=== PATIENT | male | born 1940 | race Caucasian/White ===

== ENCOUNTER 2017-04-21 14:19 | Inpatient (IN) | payer BC, OTHER ==
[~2017-04-21] VITALS: Ht 182.9 cm; Wt 92.5 kg
[2017-04-21 14:38] VITALS: BP 109/68; PULSE 118; TEMP 37.4; O2SAT 99; BMI 27.7
[2017-04-21 14:54] VITALS: BP 109/68; PULSE 118; O2SAT 100
--- NOTE | 2017-04-21 15:02 | Gastrointestinal Consultation ---
Gastrointestinal Consultation Date of Consultation: Apr 21, 2017 Attending Physician: Dr. Hanna Consulting Physician: Dr. Garcia/GABINO Cooper Reason for Consultation: Ulcerative colitis flare History of Present Illness Patient is a 76 year old male just seen by me in the office today for a new patient evaluation. He is a pleasant 76 year-old male with a 18 year history of UC which has been well controlled with Asacol and Azathioprine therapy for many years. Since February, however, he has been having symptoms of severe UC and was diagnosed at that time with a co-infection of C Difficile colitis. Patient had been following [facility] for management of his UC. He was seen and treated by their office with a 10 day course of Vancomycin. Patient states that despite the antibiotic treatment, he had remained quite symptomatic and has been having ongoing and severe diarrhea since that time. Patient describes symptoms of bilateral lower quadrant abdominal pain and cramping, loose to watery and bloody stools greater than 20 times per day. Bleeding has subsided some over the past week. He states he is feeling quite fatigued, has dry mouth and is dizzy upon standing. Patient has been prescribed a Prednisone taper by [facility]. He has just completed a week of 30 mg daily. The corticosteroids and Imodium he reports taking have not reduced his symptoms. He had started pre-testing for consideration of Remicade therapy. An outpatient stool for C Diff in March was negative. No recent stool culture was performed. Last CBC was also in early March. He was not anemic at that time with a hemoglobin of 14.2. No results of laboratory testing are available at the time of this dictation. Most worrisome, the patient has reportedly sustained an almost 60 pound weight loss since February. A colonoscopy was performed at [facility] on 04/04/17. Results of testing included severe active UC from the rectum to hepatic flexure with ascending colon and cecal sparing. Discussed with Dr. Powers for consideration of admission to the hospital as he is failing outpatient management. Concern for possible co-infection with C Diff vs steroid refractory UC. When seen in the office, he denied any fever or chills, abdominal pain at that time, nausea or vomiting or bloating. He did have multiple bowel movements while in the office and was noted to also have fecal incontinence. Past Medical/Surgical History Past Medical History: 1. Anemia 2. Diabetes 3. GERD 4. Hemorrhoids 5. Hiatus hernia 6. Tubular adenoma of the colon 7. Carpal tunnel syndrome 8. C Diff colitis 9. Hypercholesterolemia 10. Prostate cancer 11. Peripheral neuropathy 12. Spinal stenosis 13. Ulcerative colitis Past Surgical History: 1. Back surgery 2. Bladder surgery 3. Prostatectomy 4. Shoulder surgery 5. Tonsillectomy and adenoidectomy 6. Complete colonoscopy Family History Sororal history of Crohn's disease. Negative for GI malignancy. Social History Smoking Status: Never Smoker Alcohol Use: none Drug Use: none Marital Status: Housing Status: lives with family Occupation Status: retired Physical Exam General Appearance: no apparent distress, + pertinent finding (Chronic ill- appearing) Eyes: PERRL ENT: hearing grossly normal Neck: supple, no adenopathy Respiratory/Chest: lungs clear Cardiovascular: regular rate, rhythm Abdomen: normal bowel sounds, soft, no pulsatile mass, + tenderness (LUQ/LLQ) Extremities: non-tender, no pedal edema Neurologic/Psych: alert, normal mood/affect, oriented x 3 Skin: no jaundice Impression Patient is a 76 year old male with a long-standing history of Ulcerative Colitis with severely active disease noted on recent colonoscopy by [facility] in the setting of recent diagnosis of of C Diff in February of this year with persistent symptoms refractory of oral corticosteroid use. Plan Agree with GABINO Cooper as above: Abd: Soft, Tender LUQ and LLQ, ND, +BS ROS: Negative x12 system review other than pertinent positives in the HPI Plan: 1) Check Stool for C-diff 2) Check CBC, CMP and CRP in the AM 3) Start Solu-Medrol 40mg IV BID 4) Start pre-Remicade testing as patient will most likely need Biologic therapy for treatment of UC 5) No plans for repeat colonoscopy, as he has just had this performed at [facility] in Late March 6) Will follow Clinical course and make further recommendations as needed.
--- NOTE | 2017-04-21 15:46 | Medical Student: [facility] ---
Med Student History & Physical Date & Time of Service: Apr 21, 2017 at 15:39 Chief Complaint: Ulcerative Colitis Flare Up Primary Care Physician: Kaveh Mccormack D.O. History of Present Illness Source: patient, spouse Mr. Billings had a long history of ulcerative colitis. He was diagnosed when he was in high school. He says his last flair was 5 years ago, and before that for some time he would get a flair every 2-3 years. During this most recent flair, which began approx. in February he as lost 60 pounds (60 pounds in about 2 months). During that time, he was found to have C diff and treated with vancomycin. After that, he was put on 40 mg oral steroids daily for an unknown period of time as an outpatient until the past week where that does was tapered to 30 mg daily. He states that he has not had a normal bowel movement since February, and that he has mostly had watery diarrhea with blood clots or streaks of pink blood. He complains of stomach pain, although doesn't feel like he is in pain during my visit. His pain is mostly associated with a crampy feeling that sometimes goes away after defecation and sometimes will return shortly thereafter. He has complained of recent chills, cough, dizziness, and several episodes of vomiting. He says that he feels that his disease has gotten worse recently. Past Medical/Surgical History Diabetes melitis Prostate cancer (post surgery in 1970s, radiation treatment in , monitored with PSA) Family History His sister has Crohn's disease Social History Does not smoke; does not drink Smoking Status: Never Smoker Smokeless Tobacco Use: No Alcohol Use: none Drug Use: none Marital Status: Occupational Status: retired Allergies Coded Allergies: Cephalosporins (Verified Allergy, Mild, RASH, 04/21/17) Medications Ascorbic Acid (Vitamin C), DAILY Atorvastatin (Lipitor), 1 TAB PO DAILY Azathioprine (Imuran), 50 MG PO DAILY Cholecalciferol (Vitamin D-3), DAILY Cyanocobalamin (Vitamin B-12), 1,000 MCG PO DAILY Ferrous Sulfate (Iron), DAILY Glucosamine Sulfate (Glucosamine), 1,000 MG PO DAILY Mesalamine (Asacol Hd), 2 TID Pantoprazole (Protonix), 40 MG PO DAILY Sitagliptin (Januvia), 50 MG PO DAILY Review of Systems Constitutional: + chills, + weight loss, No sweats, No weakness Respiratory: + cough, No wheezing, No shortness of breath, No dyspnea on exertion, No dyspnea at rest Cardiovascular: No chest pain Abdomen: + pain, + vomiting, + diarrhea, No nausea, No constipation Musculoskeletal: No joint pain, No muscle pain Genitourinary - Male: No urinary frequency, No urinary urgency, No urinary hesitancy Physical Exam Vital Signs (24 Hours) Date Time Temp Pulse Resp B/P (MAP) Pulse Ox O2 Delivery O2 Flow Rate FiO2 04/21/17 14:54 118 22 109/68 (82) 100 Room Air General Appearance: WD/WN, + mild distress Head: normocephalic, atraumatic Eyes: normal inspection ENT: hearing grossly normal, + pertinent finding (Dry mucus membranes) Respiratory/Chest: chest non-tender, lungs clear, normal breath sounds, no respiratory distress, no accessory muscle use Cardiovascular: regular rate, rhythm, no edema, no gallop, no JVD, no murmur Abdomen/GI: normal bowel sounds, + tenderness, + distended Impression Assessment and Plan A/P: Ulcerative colitis flair -Obtain CBC, CMP, H/H, stool C diff toxin, ESR and CRP, stool culture -Obtain Gastroenterology Consult -Previously managed on Mesalamine delayed release tablets Dehydration -IV fluids (0.9% NaCl) Diabetes - Obtain HbA1c -insulin while in hospital Hyperlipidemia -on atorvastatin Reviewed: Pt Seen/Exam by Me History See my note for details.
--- NOTE | 2017-04-21 16:03 | History and Physical ---
History & Physical Date & Time of Service: Apr 21, 2017 at 15:49 Chief Complaint: Ulcerative Colitis Flare Up Primary Care Physician: Kaveh Mccormack D.O. History of Present Illness Source: patient 76-year-old male with past medical history of ulcerative colitis presented as a direct admit with complaints of persistent bloody diarrhea which started in February 2017. He was found to be positive for C. difficile and treated with oral vancomycin for about 10 days, he was started on oral steroids due to persistent symptoms. He stated that he recently completed 30 mg dosing of prednisone taper but continues to have diarrhea in spite of the steroids and [id number] antidiarrheals. Denies any nausea or vomiting but has intermittent crampy abdominal pain with bowel movements. Denies any fevers but has had chills. He also stated that he had lost about 60 pounds within the last 2 months. Complains of fatigue, weakness, dry mouth and dizziness. Initially diagnosed with ulcerative colitis about 18 years ago and was managed on mesalamine and azathioprine. Recent colonoscopy revealed severe ulcerative colitis. Denies any history of smoking or alcohol abuse and has a family history of Crohn's disease in his sister. Has a history of prostate cancer and had prostatectomy in the 1970s followed by radiation, last PSA done in March 2017 was 1.9 Past Medical/Surgical History PMH: Diabetes GERD Ulcerative colitis C.diff colitis Spinal stenosis Prostate cancer PSH: H/o carpal tunnel syndrome H/o peripheral neuropathy Social History Smoking Status: Never Smoker Drug Use: none Marital Status: Occupational Status: retired Allergies Coded Allergies: Cephalosporins (Verified Allergy, Mild, RASH, 04/21/17) Home Medications Scheduled Ascorbic Acid (Vitamin C), DAILY Atorvastatin (Lipitor), 1 TAB PO DAILY Azathioprine (Imuran), 50 MG PO DAILY Cholecalciferol (Vitamin D-3), DAILY Cyanocobalamin (Vitamin B-12), 1,000 MCG PO DAILY Ferrous Sulfate (Iron), DAILY Glucosamine Sulfate (Glucosamine), 1,000 MG PO DAILY Mesalamine (Asacol Hd), 2 TID Pantoprazole (Protonix), 40 MG PO DAILY Sitagliptin (Januvia), 50 MG PO DAILY Review of Systems Constitutional: + chills, + weight loss (60 lb weight loss), No fever Eyes: No worsening of vision ENT: No hearing loss Respiratory: No cough, No sputum Cardiovascular: + problem reported (dizziness), No chest pain Abdomen: + pain (intermittent crampy abdominal pain), + diarrhea, + GI bleeding , No nausea, No vomiting Musculoskeletal: No joint pain Genitourinary - Male: No hematuria, No dysuria, No urinary frequency Neurologic: No memory loss Psychiatric: No depression symptoms Endocrine: + fatigue, + excessive thirst Hematologic / Lymphatic: No abnormal bleeding/bruising Integumentary: No rash Physical Exam Vital Signs Date Time Temp Pulse Resp B/P (MAP) Pulse Ox O2 Delivery O2 Flow Rate FiO2 04/21/17 14:54 118 22 109/68 (82) 100 Room Air General Appearance: WD/WN Head: atraumatic Eyes: normal inspection ENT: hearing grossly normal Neck: supple Respiratory/Chest: chest non-tender, lungs clear, normal breath sounds, no respiratory distress, no accessory muscle use Cardiovascular: regular rate, rhythm Abdomen/GI: normal bowel sounds, soft, + pertinent finding (tenderness in mid abdominal area) Extremities/Musculoskelatal: no pedal edema Neurologic/Psych: alert, normal mood/affect, oriented x 3 Diagnostics Laboratory Results Results Past 24 Hours Test 04/21/17 15:41 Range/Units Microbiology Results 04/21/17 C.difficile Toxin B Gene (PCR), Ordered Pending 04/21/17 WBC Smear, Ordered Pending 04/21/17 Shiga Toxin Test, Ordered Pending 04/21/17 Stool Culture, Ordered Pending Impression Assessment and Plan 76-year-old male with past medical history of ulcerative colitis presented with persistent bloody diarrhea, 60 pound weight loss within the last 2 months. Persistent bloody diarrhea likely secondary to ulcerative colitis flare: - Recent colonoscopy suggestive of severe ulcerative colitis from anus to hepatic flexure - Refractory to AZA and mesalamine - Stool culture, fecal leukocytes, C. difficile ordered - Plan to initiate Remicade if no coinfection with C. difficile, quantiferon TB neg - IV solu medrol 40 m g daily - GI consult Dehydration: - Intractable diarrhea - Continue IV fluids with NSS @100 mls./hr - Monitor electrolytes New-onset diabetes mellitus: Was recently diagnosed with diabetes and is currently on Januvia - hemoglobin A1c pending Weight loss: - likely sec to UC - h/o prostatae cancer. PSA at 1.9 Hyperlipidemia: - Continue atorvastatin 40 mg GERD: -Continue Protonix 40 mg daily DO NOT RESUSCITATE DVT prophylaxis: SCDS will avoid chemical AC considering persistent bloody diarrhea Disposition: admitted to [facility] VTE Prophylaxis VTE Risk Assessment Done? Y/N: Yes Risk Level: Moderate Given or contraindicated: SCD's Resident Tracking Resident Involvement: Resident Care Provided Care Provided: Adult [facility] Medicine Reviewed: Pt Seen/Exam by Me History Pt is still having loose stools but there is no longer blood mixed with the stool. Abd pain is still present, but less than prior. No chest pain. Pt has started to have SOB with ambulation today. This is new for him. None at rest and it resolves quickly when he goes to rest and he is never SOB at rest. He has a cough, but this is not new. No fevers, chills, body aches, or other flu like sx. No one else at home is sick. States his loss of appetite was in part due to everything seeming "dry" to him. He was eating a lot of broth and soups to help with this. Agree with HPI/ROS as noted by resident General Appearance: WD/WN, no apparent distress Respiratory: lungs clear, normal breath sounds, no respiratory distress Cardiovascular: normal peripheral pulses, regular rate, rhythm Gastrointestinal: non tender, soft Extremities: non-tender, no pedal edema Neurologic/Psychiatric: alert, normal mood/affect, oriented x 3 Skin Characteristics: normal color, warm/dry Assessment/Plan Agree with plan as outlined above UC flare, steroids and likely to start remicade GI following CXR for new THAO Nursing called to inform that pt is cdiff + Start vanco given prior hx of cdiff
[2017-04-21 16:16] LABS: HEMATOCRIT 34.5 % (42-52); HEMOGLOBIN 11.7 g/dL (14.0-18.0); MEAN CELL VOLUME 90.8 fL (80-100); MEAN CORPUSCULAR HEMOGLOBIN 30.8 pg (25-34); MEAN CORPUSCULAR HGB CONC 33.9 g/dl (32-36); NUCLEATED RED BLOOD CELL ABS 0.02 K/uL (0-0); PLATELET COUNT 399 K/uL (130-400); RED CELL DISTRIBUTION WIDTH CV 13.3 % (11.5-14.5); WHITE BLOOD COUNT 12.67 K/uL (4.8-10.8)
[2017-04-21 16:39] LABS: ALBUMIN 1.4 gm/dl (3.4-5.0); ALT/SGPT 56 U/L (12-78); BLOOD UREA NITROGEN 28 mg/dl (7-18); CALCIUM 8.7 mg/dl (8.5-10.1); CARBON DIOXIDE 23 mmol/L (21-32); CREATININE 1.82 mg/dl (0.60-1.40); GLUCOSE 95 mg/dl (70-99); POTASSIUM 4.2 mmol/L (3.5-5.1); SODIUM 130 mmol/L (136-145)
[2017-04-21 16:42] LABS: ALKALINE PHOSPHATASE 324 U/L (45-117); AST/SGOT 36 U/L (15-37); TOTAL PROTEIN 6.5 gm/dl (6.4-8.2)
[2017-04-21] MEDS: SODIUM CHLORIDE 0.9% 1000ML 1,000 ML IV SCH (16:56)
[2017-04-21] MEDS ORDERED: ATOR-24 PO (17:06)
[2017-04-21] MEDS ORDERED: CHOL200027 (17:06)
[2017-04-21] MEDS ORDERED: FERR1TAB23 (17:06)
[2017-04-21] MEDS ORDERED: PANT40TA PO (17:06)
[2017-04-21] MEDS ORDERED: MESA1TAB4 (17:06)
[2017-04-21] MEDS ORDERED: AZAT50TA17 PO (17:06)
[2017-04-21] MEDS ORDERED: CYAN10005 PO (17:06)
[2017-04-21] MEDS ORDERED: GLUC10007 PO (17:06)
[2017-04-21] MEDS ORDERED: SITA50TA3 PO (17:06)
[2017-04-21] MEDS ORDERED: ASCO10003 (17:06)
--- NOTE | 2017-04-21 18:44 | DIAGNOSTIC IMAGING REPORT ---
CHEST 2 VIEWS ROUTINE CLINICAL HISTORY: Dyspnea on exertion COMPARISON STUDY: No previous studies for comparison. FINDINGS: The cardiac and mediastinal contours are normal. There is no evidence of focal pulmonary consolidation. There is no evidence of failure. No pleural effusions are visualized.[ There is mild gaseous prominence of the visualized portions of the colon. IMPRESSION: No active disease in the chest. Electronically signed by: Pelon Prince M.D. 04/21/2017 6:42 PM Dictated Date/Time: 04/21/2017 6:41 PM
[2017-04-21] MEDS: RASPBERRY SYRUP 5 ML UDP PO SCH (19:17)
[2017-04-21] MEDS: VANCOMYCIN HCL 125 MG/2.5ML SOLN PO SCH (19:17)
[2017-04-21] MEDS: METHYLPREDNISOLONE IV 40 MG in SYRINGE 0 ML IV SCH (19:34)
[2017-04-21 23:11] VITALS: BP 145/88; PULSE 90; TEMP 36.7; O2SAT 98
[2017-04-22] MEDS: VANCOMYCIN HCL 125 MG/2.5ML SOLN PO SCH ×4 (00:26→19:28)
[2017-04-22] MEDS: RASPBERRY SYRUP 5 ML UDP PO SCH ×4 (00:26→19:28)
[2017-04-22] MEDS: SODIUM CHLORIDE 0.9% 1000ML 1,000 ML IV SCH ×3 (02:13→22:02)
[2017-04-22 06:56] LABS: HEMOGLOBIN A1C 6.8 % (4.5-5.6)
[2017-04-22] MEDS: CYANOCOBALAMIN 500 MCG TAB (VIT B-12) PO SCH (07:31)
[2017-04-22] MEDS: SITAGLIPTIN 25 MG TAB PO SCH (07:31)
[2017-04-22] MEDS: PANTOprazole SOD 40 MG TAB PO SCH (07:32)
[2017-04-22] MEDS: METHYLPREDNISOLONE IV 40 MG in SYRINGE 0 ML IV SCH ×2 (07:32→19:28)
[2017-04-22] MEDS: ATORVASTATIN 40 MG TAB PO SCH ×3 (07:32→19:52)
[2017-04-22 07:44] LABS: HEMATOCRIT 30.5 % (42-52); HEMOGLOBIN 10.1 g/dL (14.0-18.0); MEAN CELL VOLUME 91.9 fL (80-100); MEAN CORPUSCULAR HEMOGLOBIN 30.4 pg (25-34); MEAN CORPUSCULAR HGB CONC 33.1 g/dl (32-36); MEAN PLATELET VOLUME 8.7 fL (7.4-10.4); PLATELET COUNT 359 K/uL (130-400); RED CELL DISTRIBUTION WIDTH CV 13.5 % (11.5-14.5); RED CELL DISTRIBUTION WIDTH SD 45.4 fL (36.4-46.3); WHITE BLOOD COUNT 9.77 K/uL (4.8-10.8)
--- NOTE | 2017-04-22 07:59 | Medical Student: [facility] ---
Med Student Progress Note Date of Service Apr 22, 2017. Subjective Pt evaluation today including: conversation w/ patient, physical exam Pain: Denies pain The patient states that he slept better last night than he had in months. He woke up 3 times to go to the bathroom to pass stool overnight and has passed stool once this morning before I saw him at 8:30am. He says that his stool is more formed and a solid brown as opposed to the watery diarrhea with occasional blood that he was having. He was eating breakfast during my visit and had a appetite. When he stands to use the bathroom, he is no longer dizzy/ lightheaded like he was on admission. He does not feel like his mouth is as dry today, although he admitted needing constant fluids to wash down the food he was eating. During my afternoon visit at 3:30pm, the patient states he has gone to the bathroom 2-3 times since my AM visit. He describes these bowel movements as mostly watery diarrhea. There is no blood in his stool. He says that occasionally today his bowel movements have contained more normal solid brown stool but they have been mixed and also sometimes just watery diarrhea. This is in frequency than in the past, but only sometimes changed and sometimes the same in character as described. This morning he told me he was having more formed stools, but his historical recall at this time is that they have been mixed. Review of Systems Constitutional: No chills Cardiac: No chest pain Abdomen: No pain, No nausea, No vomiting, No diarrhea Endo: + excessive thirst Objective Vital Signs Date Time Temp Pulse Resp B/P (MAP) Pulse Ox O2 Delivery O2 Flow Rate FiO2 04/22/17 00:13 Room Air 04/21/17 23:11 36.7 90 18 145/88 (107) 98 Room Air 04/21/17 19:45 Room Air 04/21/17 14:54 118 22 109/68 (82) 100 Room Air 04/21/17 14:38 118 22 109/68 04/21/17 14:38 37.4 118 22 109/68 99 Room Air Physical Exam General Appearance: WD/WN, no apparent distress Respiratory/Chest: chest non-tender, lungs clear, normal breath sounds, no respiratory distress, no accessory muscle use Cardiovascular: regular rate, rhythm, no edema, no gallop, no JVD, no murmur Abdomen: normal bowel sounds, + distended Laboratory Results Last 24 Hours Test 04/21/17 16:00 04/22/17 07:16 White Blood Count 12.67 K/uL 9.77 K/uL Red Blood Count 3.80 M/uL 3.32 M/uL Hemoglobin 11.7 g/dL 10.1 g/dL Hematocrit 34.5 % 30.5 % Mean Corpuscular Volume 90.8 fL 91.9 fL Mean Corpuscular Hemoglobin 30.8 pg 30.4 pg Mean Corpuscular Hemoglobin Concent 33.9 g/dl 33.1 g/dl Platelet Count 399 K/uL 359 K/uL Mean Platelet Volume 9.0 fL 8.7 fL RDW Standard Deviation 44.0 fL 45.4 fL RDW Coefficient of Variation 13.3 % 13.5 % Nucleated RBC Absolute Count (auto) 0.02 K/uL Neutrophils % (Manual) 86.6 % Lymphocytes % (Manual) 4.2 % Monocytes % (Manual) 7.6 % Metamyelocytes % 0.8 % Myelocytes % 0.8 % Nucleated Red Blood Cells % 0.2 % Neutrophils # (Manual) 10.97 K/uL Total Absolute Neutrophils 10.97 K/uL Lymphocytes # (Manual) 0.53 K/uL Total Absolute Lymphocytes 0.53 K/uL Monocytes # (Manual) 0.96 K/uL Metamyelocytes # 0.10 K/uL Myelocytes # 0.10 K/uL Toxic Granulation 2+ Toxic Vacuolation 1+ Dohle Bodies 1+ Spherocytes 1+ Erythrocyte Sedimentation Rate 82 mm/hr Sodium Level 130 mmol/L Potassium Level 4.2 mmol/L Chloride Level 94 mmol/L Carbon Dioxide Level 23 mmol/L Anion Gap 13.0 mmol/L Blood Urea Nitrogen 28 mg/dl Creatinine 1.82 mg/dl Estimated GFR () 40.9 Estimated GFR (Non- 35.3 BUN/Creatinine Ratio 15.5 Random Glucose 95 mg/dl Estimated Average Glucose 148 mg/dl Hemoglobin A1c 6.8 % Calcium Level 8.7 mg/dl Total Bilirubin 1.3 mg/dl Aspartate Amino Transf (AST/SGOT) 36 U/L Alanine Aminotransferase (ALT/SGPT) 56 U/L Alkaline Phosphatase 324 U/L Total Protein 6.5 gm/dl Albumin 1.4 gm/dl Globulin 5.1 gm/dl Albumin/Globulin Ratio 0.3 Medications Current Inpatient Medications Medications (Trade) Dose Ordered Sig/Tawanda Route Start Time Stop Time Status Last Admin Dose Admin Sodium Chloride 1,000 ml @ 100 mls/hr Q10H IV 04/21/17 16:00 05/21/17 15:59 04/22/17 10:59 100 MLS/HR Methylprednisolone Sodium Succinate 40 mg/Syringe 0.64 ml @ 1.5 mls/min BID IV 04/21/17 20:00 05/21/17 19:59 04/22/17 07:32 1.5 MLS/MIN Cyanocobalamin (Vitamin B-12 Tab) 1,000 mcg DAILY PO 04/22/17 08:00 05/22/17 07:59 04/22/17 07:31 1,000 MCG Pantoprazole Sodium (Protonix Tab) 40 mg DAILY PO 04/22/17 08:00 05/22/17 07:59 04/22/17 07:32 40 MG Sitagliptin Phosphate (Januvia Tab) 50 mg DAILY PO 04/22/17 08:00 05/22/17 07:59 04/22/17 07:31 50 MG Vancomycin HCl (Vancomycin Oral Soln) 125 mg Q6H PO 04/21/17 18:30 05/01/17 18:29 04/22/17 11:46 125 MG Raspberry (Raspberry Syrup 5ml Cup) 5 ml Q6H PO 04/21/17 18:30 05/05/17 18:29 04/22/17 11:46 5 ML Atorvastatin Calcium (Lipitor Tab) 40 mg HS PO 04/22/17 21:00 05/22/17 20:59 Saccharomyces Boulardii (Florastor Cap) 250 mg BID PO 04/22/17 10:00 05/22/17 09:59 04/22/17 10:58 250 MG Assessment and Plan Assessment and Plan: Assessment and Plan A/P: Ulcerative colitis flair -Obtain CBC, CMP, H/H, stool C diff toxin, ESR and CRP, stool culture -Obtain Gastroenterology Consult, -- Consult appreciated --today, GI recommends initiation of Florastor 250 mg BID -Continue 40mg IV methylprednisolone BID -Previously managed on Mesalamine delayed release tablets -Stool testing revealed C diff toxin gene positivity, start Vancomycin 125 mg Q6H PO -Stool culture reveals stool negative for shigella, Campylobacter, and Salmonella - Initial tests preparing for initiation of remicade therapy - outside labs show negative quantiferon gold test for TB - Vitamin B12 and Folate levels tested and normal Anemia Hgb/Hct is: low at 11.7/34.5 on 04/21/17 and lower at 10.1/30.5 on 04/22/17 Dehydration -IV fluids (0.9% NaCl) Diabetes melitis - Obtain HbA1c - 6.8 ----[id number]- -[id number]- -i-n- -[id number]-a-l- Sitagliptin 50mg PO daily Hyperlipidemia -on atorvastatin 40 mg PO daily Reviewed: Pt Seen/Exam by Me History See my note for details. Assessment/Plan Agree with plan as outlined above UC flare, steroids and likely to start remicade GI following CXR for new THAO Nursing called to inform that pt is cdiff + Start vanco given prior hx of cdiff
[2017-04-22 08:00] VITALS: O2SAT 99
[2017-04-22] MEDS ORDERED: GLUCOSAMINE SULFATE 1000 MG PO SCH (08:00)
[2017-04-22] MEDS ORDERED: NURSING VERBAL MED ORDER ONE (08:00)
[2017-04-22 08:06] LABS: ALBUMIN 1.3 gm/dl (3.4-5.0); CALCIUM 8.1 mg/dl (8.5-10.1); CREATININE 0.93 mg/dl (0.60-1.40); POTASSIUM 3.9 mmol/L (3.5-5.1)
[2017-04-22 08:07] VITALS: BP 106/68; PULSE 86; TEMP 36.6; O2SAT 98
[2017-04-22 08:10] LABS: TOTAL PROTEIN 5.9 gm/dl (6.4-8.2)
[2017-04-22 08:14] LABS: BASO % 0.1 %; BASO ABS # 0.01 K/uL (0-0.2); IG# 0.14 K/uL (0.00-0.02); LYMPH % 3.3 %; LYMPH ABS # 0.32 K/uL (1.2-3.4); MONO % 6.8 %; MONO ABS # 0.66 K/uL (0.11-0.59); NEUT % 88.4 %; NEUT ABS # 8.64 K/uL (1.4-6.5)
--- NOTE | 2017-04-22 09:06 | Gastroenterology Progress Note ---
Progress Note Date of Service: Apr 22, 2017 Subjective Pt evaluation today including: conversation w/ patient, conversation w/ family , physical exam, chart review, lab review, review of inpatient medication list Patient reports significant improvement over night. He was only awaken from sleep times to have bowel movements. States his stool started to have some form this morning. No blood in the bms. No abdominal pain. Tolerating a low fiber diet well without any nausea or vomiting. Stool for C Difficile toxin B positive. Has been started on oral Vancomycin as well as IV Solu-Medrol. Patient is without any other GI complaints. Review of Systems Constitutional: No fever, No chills Respiratory: No problem reported Cardiac: No problem reported Abdomen: + see HPI Psych: No problem reported Medications Current Inpatient Medications Medications (Trade) Dose Ordered Sig/Tawanda Route Start Time Stop Time Status Last Admin Dose Admin Sodium Chloride 1,000 ml @ 100 mls/hr Q10H IV 04/21/17 16:00 05/21/17 15:59 04/22/17 02:13 100 MLS/HR Methylprednisolone Sodium Succinate 40 mg/Syringe 0.64 ml @ 1.5 mls/min BID IV 04/21/17 20:00 05/21/17 19:59 04/22/17 07:32 1.5 MLS/MIN Cyanocobalamin (Vitamin B-12 Tab) 1,000 mcg DAILY PO 04/22/17 08:00 05/22/17 07:59 04/22/17 07:31 1,000 MCG Pantoprazole Sodium (Protonix Tab) 40 mg DAILY PO 04/22/17 08:00 05/22/17 07:59 04/22/17 07:32 40 MG Sitagliptin Phosphate (Januvia Tab) 50 mg DAILY PO 04/22/17 08:00 05/22/17 07:59 04/22/17 07:31 50 MG Vancomycin HCl (Vancomycin Oral Soln) 125 mg Q6H PO 04/21/17 18:30 05/01/17 18:29 04/22/17 06:10 125 MG Raspberry (Raspberry Syrup 5ml Cup) 5 ml Q6H PO 04/21/17 18:30 05/05/17 18:29 04/22/17 06:10 5 ML Atorvastatin Calcium (Lipitor Tab) 40 mg HS PO 04/22/17 21:00 05/22/17 20:59 Objective Vital Signs Date Time Temp Pulse Resp B/P (MAP) Pulse Ox O2 Delivery O2 Flow Rate FiO2 04/22/17 08:07 36.6 86 17 106/68 (81) 98 Room Air 04/22/17 00:13 Room Air 04/21/17 23:11 36.7 90 18 145/88 (107) 98 Room Air 04/21/17 19:45 Room Air 04/21/17 14:54 118 22 109/68 (82) 100 Room Air 04/21/17 14:38 118 22 109/68 04/21/17 14:38 37.4 118 22 109/68 99 Room Air Physical Exam General Appearance: WD/WN, no apparent distress Eyes: EOMI ENT: hearing grossly normal Respiratory/Chest: lungs clear, no respiratory distress Cardiovascular: regular rate, rhythm Abdomen: normal bowel sounds, non tender, soft Neurologic/Psych: alert, normal mood/affect, oriented x 3 Skin: warm/dry Laboratory Results Last 24 Hours Test 04/21/17 16:00 04/22/17 07:16 White Blood Count 12.67 K/uL 9.77 K/uL Red Blood Count 3.80 M/uL 3.32 M/uL Hemoglobin 11.7 g/dL 10.1 g/dL Hematocrit 34.5 % 30.5 % Mean Corpuscular Volume 90.8 fL 91.9 fL Mean Corpuscular Hemoglobin 30.8 pg 30.4 pg Mean Corpuscular Hemoglobin Concent 33.9 g/dl 33.1 g/dl Platelet Count 399 K/uL 359 K/uL Mean Platelet Volume 9.0 fL 8.7 fL RDW Standard Deviation 44.0 fL 45.4 fL RDW Coefficient of Variation 13.3 % 13.5 % Nucleated RBC Absolute Count (auto) 0.02 K/uL Neutrophils % (Manual) 86.6 % Lymphocytes % (Manual) 4.2 % Monocytes % (Manual) 7.6 % Metamyelocytes % 0.8 % Myelocytes % 0.8 % Nucleated Red Blood Cells % 0.2 % Neutrophils # (Manual) 10.97 K/uL Total Absolute Neutrophils 10.97 K/uL Lymphocytes # (Manual) 0.53 K/uL Total Absolute Lymphocytes 0.53 K/uL Monocytes # (Manual) 0.96 K/uL Metamyelocytes # 0.10 K/uL Myelocytes # 0.10 K/uL Toxic Granulation 2+ 1+ Toxic Vacuolation 1+ Dohle Bodies 1+ Spherocytes 1+ Erythrocyte Sedimentation Rate 82 mm/hr Sodium Level 130 mmol/L 133 mmol/L Potassium Level 4.2 mmol/L 3.9 mmol/L Chloride Level 94 mmol/L 99 mmol/L Carbon Dioxide Level 23 mmol/L 25 mmol/L Anion Gap 13.0 mmol/L 9.0 mmol/L Blood Urea Nitrogen 28 mg/dl 25 mg/dl Creatinine 1.82 mg/dl 0.93 mg/dl Estimated GFR () 40.9 92.1 Estimated GFR (Non- 35.3 79.5 BUN/Creatinine Ratio 15.5 27.1 Random Glucose 95 mg/dl 128 mg/dl Estimated Average Glucose 148 mg/dl Hemoglobin A1c 6.8 % Calcium Level 8.7 mg/dl 8.1 mg/dl Total Bilirubin 1.3 mg/dl 0.6 mg/dl Aspartate Amino Transf (AST/SGOT) 36 U/L 31 U/L Alanine Aminotransferase (ALT/SGPT) 56 U/L 46 U/L Alkaline Phosphatase 324 U/L 284 U/L Total Protein 6.5 gm/dl 5.9 gm/dl Albumin 1.4 gm/dl 1.3 gm/dl Globulin 5.1 gm/dl 4.6 gm/dl Albumin/Globulin Ratio 0.3 0.3 Neutrophils (%) (Auto) 88.4 % Lymphocytes (%) (Auto) 3.3 % Monocytes (%) (Auto) 6.8 % Eosinophils (%) (Auto) 0.0 % Basophils (%) (Auto) 0.1 % Neutrophils # (Auto) 8.64 K/uL Lymphocytes # (Auto) 0.32 K/uL Monocytes # (Auto) 0.66 K/uL Eosinophils # (Auto) 0.00 K/uL Basophils # (Auto) 0.01 K/uL Immature Granulocyte % (Auto) 1.4 % Immature Granulocyte # (Auto) 0.14 K/uL Echinocytes 1+ Est Creatinine Clear Calc Drug Dose 74.2 ml/min Assessment and Plan Patient is a 76 year old male with a long-standing history of Ulcerative Colitis with severely active disease noted on recent colonoscopy by [facility] in the setting of recent diagnosis of C Diff in February of this year with persistent symptoms refractory of oral corticosteroid use and positive C Difficile toxin B. 1. Continue Vancomycin 125 mg QID. 2. Continue Solu-Medrol 40 mg IV BID. 3. Low fiber diet. 4. Add Florastor 250 mg BID. 5. Supportive care per primary team. Agree with GABINO Cooper as above Abd: Soft, NT, ND, +BS Continue current therapy Will follow clinical course and make further recommendations as needed.
[2017-04-22] MEDS: SACCHAROMYCES BOUL (FLORASTOR) 250 MG CAP PO SCH ×2 (10:58→19:52)
--- NOTE | 2017-04-22 12:45 | Family Medicine Progress Note ---
Progress Note Date of Service Apr 22, 2017. Subjective Pt evaluation today including: conversation w/ patient, physical exam Pain: denies any discomfort this AM PO Intake: tolerating low fiber diet Voiding: no voiding problems This AM pt denies any abdominal pain. Reports resolution of bloody diarrhea - BM this AM was more formed, brown and non-bloody. No n/v. Constitutional: No fever, No chills Respiratory: No shortness of breath Cardiovascular: No chest pain Abdomen: No pain, No nausea, No vomiting, No diarrhea Male : No dysuria Medications Current Inpatient Medications Medications (Trade) Dose Ordered Sig/Tawanda Route Start Time Stop Time Status Last Admin Dose Admin Sodium Chloride 1,000 ml @ 100 mls/hr Q10H IV 04/21/17 16:00 05/21/17 15:59 04/22/17 10:59 100 MLS/HR Methylprednisolone Sodium Succinate 40 mg/Syringe 0.64 ml @ 1.5 mls/min BID IV 04/21/17 20:00 05/21/17 19:59 04/22/17 07:32 1.5 MLS/MIN Cyanocobalamin (Vitamin B-12 Tab) 1,000 mcg DAILY PO 04/22/17 08:00 05/22/17 07:59 04/22/17 07:31 1,000 MCG Pantoprazole Sodium (Protonix Tab) 40 mg DAILY PO 04/22/17 08:00 05/22/17 07:59 04/22/17 07:32 40 MG Sitagliptin Phosphate (Januvia Tab) 50 mg DAILY PO 04/22/17 08:00 05/22/17 07:59 04/22/17 07:31 50 MG Vancomycin HCl (Vancomycin Oral Soln) 125 mg Q6H PO 04/21/17 18:30 05/01/17 18:29 04/22/17 11:46 125 MG Raspberry (Raspberry Syrup 5ml Cup) 5 ml Q6H PO 04/21/17 18:30 05/05/17 18:29 04/22/17 11:46 5 ML Atorvastatin Calcium (Lipitor Tab) 40 mg HS PO 04/22/17 21:00 05/22/17 20:59 Saccharomyces Boulardii (Florastor Cap) 250 mg BID PO 04/22/17 10:00 05/22/17 09:59 04/22/17 10:58 250 MG Objective Vital Signs Date Time Temp Pulse Resp B/P (MAP) Pulse Ox O2 Delivery O2 Flow Rate FiO2 04/22/17 08:07 36.6 86 17 106/68 (81) 98 Room Air 04/22/17 08:00 99 Room Air 04/22/17 00:13 Room Air 04/21/17 23:11 36.7 90 18 145/88 (107) 98 Room Air 04/21/17 19:45 Room Air 04/21/17 14:54 118 22 109/68 (82) 100 Room Air 04/21/17 14:38 118 22 109/68 04/21/17 14:38 37.4 118 22 109/68 99 Room Air Physical Exam General Appearance: no apparent distress Eyes: normal inspection, sclerae normal Respiratory/Chest: lungs clear, normal breath sounds Cardiovascular: regular rate, rhythm, no murmur Abdomen: normal bowel sounds, soft, + tenderness (LUQ and LLQ) Extremities: non-tender, no pedal edema Skin: warm/dry Laboratory Results 04/22/17 07:16 Red Blood Count 3.32, Mean Corpuscular Volume 91.9, Mean Corpuscular Hemoglobin 30.4, Mean Corpuscular Hemoglobin Concent 33.1, Mean Platelet Volume 8.7, Neutrophils (%) (Auto) 88.4, Lymphocytes (%) (Auto) 3.3, Monocytes (%) (Auto) 6.8, Eosinophils (%) (Auto) 0.0, Basophils (%) (Auto) 0.1, Neutrophils # (Auto) 8.64, Lymphocytes # (Auto) 0.32, Monocytes # (Auto) 0.66, Eosinophils # (Auto) 0.00, Basophils # (Auto) 0.01 04/22/17 07:16 Test 04/21/17 16:00 04/22/17 07:16 04/22/17 10:26 Nucleated RBC Absolute Count (auto) 0.02 K/uL (0-0) Neutrophils % (Manual) 86.6 % Lymphocytes % (Manual) 4.2 % Monocytes % (Manual) 7.6 % Metamyelocytes % 0.8 % Myelocytes % 0.8 % Nucleated Red Blood Cells % 0.2 % Neutrophils # (Manual) 10.97 K/uL (1.4-6.5) Total Absolute Neutrophils 10.97 K/uL (1.4-6.5) Lymphocytes # (Manual) 0.53 K/uL (1.2-3.4) Total Absolute Lymphocytes 0.53 K/uL (1.2-3.4) Monocytes # (Manual) 0.96 K/uL (0.11-0.59) Metamyelocytes # 0.10 K/uL (0-0) Myelocytes # 0.10 K/uL (0-0) Toxic Vacuolation 1+ Dohle Bodies 1+ Spherocytes 1+ Erythrocyte Sedimentation Rate 82 mm/hr (0-14) Estimated Average Glucose 148 mg/dl Hemoglobin A1c 6.8 % (4.5-5.6) White Blood Count 9.77 K/uL (4.8-10.8) Red Blood Count 3.32 M/uL (4.7-6.1) Hemoglobin 10.1 g/dL (14.0-18.0) Hematocrit 30.5 % (42-52) Mean Corpuscular Volume 91.9 fL (80-100) Mean Corpuscular Hemoglobin 30.4 pg (25-34) Mean Corpuscular Hemoglobin Concent 33.1 g/dl (32-36) Platelet Count 359 K/uL (130-400) Mean Platelet Volume 8.7 fL (7.4-10.4) Neutrophils (%) (Auto) 88.4 % Lymphocytes (%) (Auto) 3.3 % Monocytes (%) (Auto) 6.8 % Eosinophils (%) (Auto) 0.0 % Basophils (%) (Auto) 0.1 % Neutrophils # (Auto) 8.64 K/uL (1.4-6.5) Lymphocytes # (Auto) 0.32 K/uL (1.2-3.4) Monocytes # (Auto) 0.66 K/uL (0.11-0.59) Eosinophils # (Auto) 0.00 K/uL (0-0.5) Basophils # (Auto) 0.01 K/uL (0-0.2) RDW Standard Deviation 45.4 fL (36.4-46.3) RDW Coefficient of Variation 13.5 % (11.5-14.5) Immature Granulocyte % (Auto) 1.4 % Immature Granulocyte # (Auto) 0.14 K/uL (0.00-0.02) Toxic Granulation 1+ Echinocytes 1+ Anion Gap 9.0 mmol/L (3-11) Est Creatinine Clear Calc Drug Dose 74.2 ml/min Estimated GFR () 92.1 Estimated GFR (Non- 79.5 BUN/Creatinine Ratio 27.1 (10-20) Calcium Level 8.1 mg/dl (8.5-10.1) Total Bilirubin 0.6 mg/dl (0.2-1) Aspartate Amino Transf (AST/SGOT) 31 U/L (15-37) Alanine Aminotransferase (ALT/SGPT) 46 U/L (12-78) Alkaline Phosphatase 284 U/L (45-117) Total Protein 5.9 gm/dl (6.4-8.2) Albumin 1.3 gm/dl (3.4-5.0) Globulin 4.6 gm/dl (2.5-4.0) Albumin/Globulin Ratio 0.3 (0.9-2) Iron Level 28 mcg/dl (35-175) Total Iron Binding Capacity 102 mcg/dl (250-450) Transferrin 87 mg/dl (200-360) Transferrin % Saturation 23 % (20-50) Ferritin 1946.0 ng/ml (8.0-388.0) Vitamin B12 Level > 2000 pg/mL (211-911) Folate 14.56 ng/mL (>5.38) Date/Time Source Procedure Growth Status 04/21/17 16:50 Stool C.difficile Toxin B Gene (PCR) - Final Positive for C. difficile toxin B gene Complete Assessment and Plan 76yoM with PMHx of new onset-DM, HLD, GERD, and ulcerative colitis presented with persistent bloody diarrhea, and 60 pound weight loss within the last 2 months. Persistent bloody diarrhea likely secondary to ulcerative colitis flare - Colonoscopy in March 2017 suggestive of severe ulcerative colitis from anus to hepatic flexure - Refractory to AZA and mesalamine - Stool culture NGTD, fecal leukocytes many - C. difficile positive, previous infection in Feb 2017 - B12 >2000; folate 14.56 nl - Iron study - Iron low 28, TIBC 102 low, Transferrin low 87, transferrin sat 23 %, and ferritin high 1946 (consistent with likely acute phase response) - GI consult - Plan to initiate Remicade if no coinfection with C. difficile, quantiferon TB = neg - IV solu medrol 40 m g daily - Vancomycin 125mg QID - Florastor 250mg BID Dehydration: improving - Intractable diarrhea - Continue IV fluids with NSS @100 mls./hr - Monitor electrolytes New-onset diabetes mellitus Was recently diagnosed with diabetes and is currently on Januvia - hemoglobin A1c 6.8 Weight loss - likely sec to UC - h/o prostatae cancer. PSA at 1.9 Hyperlipidemia - Continue atorvastatin 40 mg GERD - Continue Protonix 40 mg daily DO NOT RESUSCITATE DVT prophylaxis: SCDS - will avoid chemical AC given bloody diarrhea Disposition: pending clinical improvement Resident Involvement: Resident Care Provided Care Provided: [facility] Medicine Reviewed: Pt Seen/Exam by Me History Pt is feeling much improved. His stools are more formed and less frequent. No visible blood noted. Pt is tolerating PO without issue. Abd pain is resolved. His SOB with ambulation has resolved. No chest pain. Agree with HPI/ROS as noted by resident General Appearance: WD/WN, no apparent distress Respiratory: normal breath sounds, no respiratory distress Cardiovascular: normal peripheral pulses, regular rate, rhythm Gastrointestinal: non tender, soft Extremities: non-tender, no pedal edema Neurologic/Psychiatric: alert, normal mood/affect, oriented x 3 Skin Characteristics: normal color, warm/dry Assessment/Plan Agree with plan as outlined above UC flare, steroids and likely to start remicade GI following CXR neg and THAO has resolved Pt is cdiff + Vanco given prior hx of cdiff, started 04/21 HS Iron panel, B12, folate given recent nutrition issues
[2017-04-22 16:00] VITALS: O2SAT 98
[2017-04-22 16:35] VITALS: BP 134/83; PULSE 99; TEMP 36.7; O2SAT 97
[2017-04-23] MEDS: RASPBERRY SYRUP 5 ML UDP PO SCH ×4 (00:08→18:18)
[2017-04-23] MEDS: VANCOMYCIN HCL 125 MG/2.5ML SOLN PO SCH ×4 (00:08→18:18)
[2017-04-23 01:10] VITALS: BP_SYST 126; BP_SYST 130; BP_DIAS 78; BP_DIAS 79; BP_DIAS 80; PULSE 108; PULSE 79; PULSE 96; TEMP 36.4; O2SAT 97
[2017-04-23] MEDS: SODIUM CHLORIDE 0.9% 1000ML 1,000 ML IV SCH (07:32)
[2017-04-23 07:33] VITALS: BP 122/73; PULSE 80; TEMP 36.5; O2SAT 97
[2017-04-23] MEDS: SACCHAROMYCES BOUL (FLORASTOR) 250 MG CAP PO SCH ×2 (07:33→20:12)
[2017-04-23] MEDS: METHYLPREDNISOLONE IV 40 MG in SYRINGE 0 ML IV SCH (07:33)
[2017-04-23 08:00] VITALS: O2SAT 97
[2017-04-23 08:10] LABS: ALBUMIN 1.2 gm/dl (3.4-5.0); CALCIUM 8.1 mg/dl (8.5-10.1); CREATININE 0.63 mg/dl (0.60-1.40); POTASSIUM 3.8 mmol/L (3.5-5.1); TOTAL PROTEIN 5.3 gm/dl (6.4-8.2)
[2017-04-23] MEDS: PANTOprazole SOD 40 MG TAB PO SCH (08:20)
[2017-04-23] MEDS: CYANOCOBALAMIN 500 MCG TAB (VIT B-12) PO SCH (08:20)
[2017-04-23] MEDS: SITAGLIPTIN 25 MG TAB PO SCH (08:20)
[2017-04-23 08:41] LABS: HEMATOCRIT 28.3 % (42-52); HEMOGLOBIN 9.4 g/dL (14.0-18.0); MEAN CELL VOLUME 92.5 fL (80-100); MEAN CORPUSCULAR HEMOGLOBIN 30.7 pg (25-34); MEAN CORPUSCULAR HGB CONC 33.2 g/dl (32-36); MEAN PLATELET VOLUME 8.9 fL (7.4-10.4); PLATELET COUNT 359 K/uL (130-400); RED CELL DISTRIBUTION WIDTH CV 13.5 % (11.5-14.5); RED CELL DISTRIBUTION WIDTH SD 45.6 fL (36.4-46.3); WHITE BLOOD COUNT 6.27 K/uL (4.8-10.8)
[2017-04-23 09:06] LABS: BASO % 0.2 %; BASO ABS # 0.01 K/uL (0-0.2); LYMPH % 6.7 %; LYMPH ABS # 0.42 K/uL (1.2-3.4); MONO % 8.1 %; MONO ABS # 0.51 K/uL (0.11-0.59); NEUT % 83.4 %; NEUT ABS # 5.23 K/uL (1.4-6.5)
--- NOTE | 2017-04-23 09:07 | Clinical Documentation Query ---
CLINICAL DOCUMENTATION QUERY In your clinical opinion is this patient being managed for: (x ) Mild protein-calorie malnutrition ( ) Not Agree ( ) Other explanation of clinical findings (Please Explain) ( ) Unable to determine (Please Define) ( ) Need to Discuss The medical record reflects the following clinical findings, treatment, and risk factors. Clinical Indicators: 60 # weight loss in 2 months Treatment: Diet, treatment of colitis flare, C-diff Risk Factors: Ulcerative colitis, C-diff, new-onset DM Please clarify and document your clinical opinion in the progress notes and discharge summary. Terms such as "probable", "suspected", "likely", "questionable", "possible", or "still to be ruled out" are acceptable. IF IN AGREEMENT, YOU MUST DOCUMENT ABOVE DIAGNOSTIC STATEMENT IN DAILY PROGRESS NOTES AND DISCHARGE SUMMARY. This document is not part of the patient's record. Thank You, Gabrielle Holm RN [phone]
--- NOTE | 2017-04-23 09:08 | Clinical Documentation Query ---
CLINICAL DOCUMENTATION QUERY In your clinical opinion is this patient being managed for: ( x ) Severe protein-calorie malnutrition ( ) Not Agree ( ) Other explanation of clinical findings (Please Explain) ( ) Unable to determine (Please Define) ( ) Need to Discuss The medical record reflects the following clinical findings, treatment, and risk factors. Clinical Indicators: 60 # weight loss in 2 months Treatment: Diet, treatment of colitis flare, C-diff Risk Factors: Ulcerative colitis, C-diff, new-onset DM Please clarify and document your clinical opinion in the progress notes and discharge summary. Terms such as "probable", "suspected", "likely", "questionable", "possible", or "still to be ruled out" are acceptable. IF IN AGREEMENT, YOU MUST DOCUMENT ABOVE DIAGNOSTIC STATEMENT IN DAILY PROGRESS NOTES AND DISCHARGE SUMMARY. This document is not part of the patient's record. Thank You, Gabrielle Holm RN [phone]
--- NOTE | 2017-04-23 09:36 | Gastroenterology Progress Note ---
Progress Note Date of Service: Apr 23, 2017 Subjective Pt evaluation today including: conversation w/ patient, physical exam, chart review, review of inpatient medication list Patient reports improved fatigue but with some generalized weakness. Patient's verbalizes concern that patient has not been ambulating will become more weak. Three bowel movements overnight. No blood or mucous. Still some fecal urgency to defecate with watery stool consistency. Tolerating diet. Continues Vanco and IV Solu-Medrol. Review of Systems Constitutional: + weakness Respiratory: No problem reported Cardiac: No problem reported Abdomen: + see HPI Medications Current Inpatient Medications Medications (Trade) Dose Ordered Sig/Tawanda Route Start Time Stop Time Status Last Admin Dose Admin Sodium Chloride 1,000 ml @ 100 mls/hr Q10H IV 04/21/17 16:00 05/21/17 15:59 04/23/17 07:32 100 MLS/HR Methylprednisolone Sodium Succinate 40 mg/Syringe 0.64 ml @ 1.5 mls/min BID IV 04/21/17 20:00 05/21/17 19:59 04/23/17 07:33 1.5 MLS/MIN Cyanocobalamin (Vitamin B-12 Tab) 1,000 mcg DAILY PO 04/22/17 08:00 05/22/17 07:59 04/23/17 08:20 1,000 MCG Pantoprazole Sodium (Protonix Tab) 40 mg DAILY PO 04/22/17 08:00 05/22/17 07:59 04/23/17 08:20 40 MG Sitagliptin Phosphate (Januvia Tab) 50 mg DAILY PO 04/22/17 08:00 05/22/17 07:59 04/23/17 08:20 50 MG Vancomycin HCl (Vancomycin Oral Soln) 125 mg Q6H PO 04/21/17 18:30 05/01/17 18:29 04/23/17 06:13 125 MG Raspberry (Raspberry Syrup 5ml Cup) 5 ml Q6H PO 04/21/17 18:30 05/05/17 18:29 04/23/17 06:13 5 ML Atorvastatin Calcium (Lipitor Tab) 40 mg HS PO 04/22/17 21:00 05/22/17 20:59 04/22/17 19:52 40 MG Saccharomyces Boulardii (Florastor Cap) 250 mg BID PO 04/22/17 10:00 05/22/17 09:59 04/23/17 07:33 250 MG Objective Vital Signs Date Time Temp Pulse Resp B/P (MAP) Pulse Ox O2 Delivery O2 Flow Rate FiO2 04/23/17 08:00 97 Room Air 04/23/17 07:33 36.5 80 17 122/73 (89) 97 Room Air 04/23/17 01:10 36.4 108 20 126/78 (94) 97 Room Air 79 130/80 (97) 96 126/79 (95) 04/23/17 00:25 Room Air 04/22/17 16:35 36.7 99 17 134/83 (100) 97 Room Air 04/22/17 16:00 98 Room Air Physical Exam General Appearance: no apparent distress Eyes: EOMI Respiratory/Chest: lungs clear, normal breath sounds, no respiratory distress Cardiovascular: regular rate, rhythm Abdomen: non tender, soft, + abnormal bowel sounds (hyperactive) Neurologic/Psych: alert, normal mood/affect, oriented x 3 Skin: warm/dry Laboratory Results Last 24 Hours Test 04/22/17 10:26 04/23/17 07:23 Iron Level 28 mcg/dl Total Iron Binding Capacity 102 mcg/dl Transferrin 87 mg/dl Transferrin % Saturation 23 % Ferritin 1946.0 ng/ml Vitamin B12 Level > 2000 pg/mL Folate 14.56 ng/mL White Blood Count 6.27 K/uL Red Blood Count 3.06 M/uL Hemoglobin 9.4 g/dL Hematocrit 28.3 % Mean Corpuscular Volume 92.5 fL Mean Corpuscular Hemoglobin 30.7 pg Mean Corpuscular Hemoglobin Concent 33.2 g/dl Platelet Count 359 K/uL Mean Platelet Volume 8.9 fL Neutrophils (%) (Auto) 83.4 % Lymphocytes (%) (Auto) 6.7 % Monocytes (%) (Auto) 8.1 % Eosinophils (%) (Auto) 0.0 % Basophils (%) (Auto) 0.2 % Neutrophils # (Auto) 5.23 K/uL Lymphocytes # (Auto) 0.42 K/uL Monocytes # (Auto) 0.51 K/uL Eosinophils # (Auto) 0.00 K/uL Basophils # (Auto) 0.01 K/uL RDW Standard Deviation 45.6 fL RDW Coefficient of Variation 13.5 % Immature Granulocyte % (Auto) 1.6 % Immature Granulocyte # (Auto) 0.10 K/uL Toxic Granulation 2+ Sodium Level 135 mmol/L Potassium Level 3.8 mmol/L Chloride Level 104 mmol/L Carbon Dioxide Level 24 mmol/L Anion Gap 7.0 mmol/L Blood Urea Nitrogen 21 mg/dl Creatinine 0.63 mg/dl Est Creatinine Clear Calc Drug Dose 109.5 ml/min Estimated GFR () 110.9 Estimated GFR (Non- 95.7 BUN/Creatinine Ratio 32.7 Random Glucose 146 mg/dl Calcium Level 8.1 mg/dl Total Bilirubin 0.4 mg/dl Aspartate Amino Transf (AST/SGOT) 39 U/L Alanine Aminotransferase (ALT/SGPT) 47 U/L Alkaline Phosphatase 231 U/L Total Protein 5.3 gm/dl Albumin 1.2 gm/dl Globulin 4.1 gm/dl Albumin/Globulin Ratio 0.3 Assessment and Plan Patient is a 76 year old male with a long-standing history of Ulcerative Colitis with severely active disease noted on recent colonoscopy by [facility] in the setting of recent diagnosis of C Diff in February of this year with persistent symptoms refractory of oral corticosteroid use and positive C Difficile toxin B. 1. Continue Vancomycin 125 mg QID. Would recommend a long taper upon discharge as he was previously treated with Vancomycin. 2. Reduce Solu-Medrol to 20 mg IV BID. 3. Low fiber diet. 4. Continue Florastor 250 mg BID. 5. Supportive care per primary team. Agree with GABINO Cooper as above Still with multiple liquid BM's per day Abd: Soft, NT, Distended, +BS Agree with continuing Vancomycin 125mg by mouth QID with long taper on Discharge Continue Solu-medrol IV at present. Continue supportive care.
--- NOTE | 2017-04-23 14:45 | Medical Student: [facility] ---
Med Student Progress Note Date of Service Apr 23, 2017. Subjective Pt evaluation today including: conversation w/ patient, conversation w/ family , physical exam Pain: No pain PO Intake: Yes Patient did well overnight. He had 3 bowel movements overnight. He has expressed some urgency to move his bowels and he had an accident last night after not being making it to the toilet. He is feeling a lot better on the steroids he says. Review of Systems Constitutional: No fever, No chills Respiratory: No shortness of breath Cardiac: No chest pain, No edema Abdomen: + diarrhea, No pain, No nausea, No vomiting Endo: No excessive thirst Objective Vital Signs Date Time Temp Pulse Resp B/P (MAP) Pulse Ox O2 Delivery O2 Flow Rate FiO2 04/23/17 08:00 97 Room Air 04/23/17 07:33 36.5 80 17 122/73 (89) 97 Room Air 04/23/17 01:10 36.4 108 20 126/78 (94) 97 Room Air 79 130/80 (97) 96 126/79 (95) 04/23/17 00:25 Room Air 04/22/17 16:35 36.7 99 17 134/83 (100) 97 Room Air 04/22/17 16:00 98 Room Air Physical Exam General Appearance: WD/WN, no apparent distress Respiratory/Chest: chest non-tender, lungs clear, normal breath sounds, no respiratory distress, no accessory muscle use Cardiovascular: regular rate, rhythm, no edema, no gallop, no JVD, no murmur Abdomen: non tender, soft, + distended Laboratory Results Last 24 Hours Test 04/23/17 07:23 White Blood Count 6.27 K/uL Red Blood Count 3.06 M/uL Hemoglobin 9.4 g/dL Hematocrit 28.3 % Mean Corpuscular Volume 92.5 fL Mean Corpuscular Hemoglobin 30.7 pg Mean Corpuscular Hemoglobin Concent 33.2 g/dl Platelet Count 359 K/uL Mean Platelet Volume 8.9 fL Neutrophils (%) (Auto) 83.4 % Lymphocytes (%) (Auto) 6.7 % Monocytes (%) (Auto) 8.1 % Eosinophils (%) (Auto) 0.0 % Basophils (%) (Auto) 0.2 % Neutrophils # (Auto) 5.23 K/uL Lymphocytes # (Auto) 0.42 K/uL Monocytes # (Auto) 0.51 K/uL Eosinophils # (Auto) 0.00 K/uL Basophils # (Auto) 0.01 K/uL RDW Standard Deviation 45.6 fL RDW Coefficient of Variation 13.5 % Immature Granulocyte % (Auto) 1.6 % Immature Granulocyte # (Auto) 0.10 K/uL Toxic Granulation 2+ Sodium Level 135 mmol/L Potassium Level 3.8 mmol/L Chloride Level 104 mmol/L Carbon Dioxide Level 24 mmol/L Anion Gap 7.0 mmol/L Blood Urea Nitrogen 21 mg/dl Creatinine 0.63 mg/dl Est Creatinine Clear Calc Drug Dose 109.5 ml/min Estimated GFR () 110.9 Estimated GFR (Non- 95.7 BUN/Creatinine Ratio 32.7 Random Glucose 146 mg/dl Calcium Level 8.1 mg/dl Total Bilirubin 0.4 mg/dl Aspartate Amino Transf (AST/SGOT) 39 U/L Alanine Aminotransferase (ALT/SGPT) 47 U/L Alkaline Phosphatase 231 U/L Total Protein 5.3 gm/dl Albumin 1.2 gm/dl Globulin 4.1 gm/dl Albumin/Globulin Ratio 0.3 Medications Current Inpatient Medications Medications (Trade) Dose Ordered Sig/Tawanda Route Start Time Stop Time Status Last Admin Dose Admin Cyanocobalamin (Vitamin B-12 Tab) 1,000 mcg DAILY PO 04/22/17 08:00 05/22/17 07:59 04/23/17 08:20 1,000 MCG Pantoprazole Sodium (Protonix Tab) 40 mg DAILY PO 04/22/17 08:00 05/22/17 07:59 04/23/17 08:20 40 MG Sitagliptin Phosphate (Januvia Tab) 50 mg DAILY PO 04/22/17 08:00 05/22/17 07:59 04/23/17 08:20 50 MG Vancomycin HCl (Vancomycin Oral Soln) 125 mg Q6H PO 04/21/17 18:30 05/01/17 18:29 04/23/17 11:22 125 MG Raspberry (Raspberry Syrup 5ml Cup) 5 ml Q6H PO 04/21/17 18:30 05/05/17 18:29 04/23/17 11:22 5 ML Atorvastatin Calcium (Lipitor Tab) 40 mg HS PO 1/16/18 21:00 05/22/17 20:59 04/22/17 19:52 40 MG Saccharomyces Boulardii (Florastor Cap) 250 mg BID PO 04/22/17 10:00 05/22/17 09:59 04/23/17 07:33 250 MG Methylprednisolone Sodium Succinate 20 mg/Syringe 0.32 ml @ 1.5 mls/min BID IV 04/23/17 20:00 05/23/17 19:59 Insulin Aspart (novoLOG ASPART) SLIDING SCALE If C... ACHS SC 04/23/17 16:30 05/23/17 16:29 Glucose (Glucose 40% Gel) 15-30 GRAMS 15 GRAMS... UD PRN PO 04/23/17 15:30 05/23/17 15:29 Glucose (Glucose Chew Tab) 4-8 Tablets 4 Tabl... UD PRN PO 04/23/17 15:30 05/23/17 15:29 Dextrose (Dextrose 50% 50ML Syringe) 25-50ML OF 50% DW IV FOR... UD PRN IV 04/23/17 15:30 05/23/17 15:29 Glucagon (Glucagon Inj) 1 mg UD PRN SQ 04/23/17 15:30 05/23/17 15:29 Assessment and Plan Assessment and Plan: Impression: Mr. Billings is a 76 year old man with a long history of ulcerative colitis. During his most recent flair, which began approx. in February he as lost 60 pounds (60 pounds in about 2 months). During that time, he was found to have C diff and treated with vancomycin. After that, he was put on 40 mg oral steroids daily for an unknown period of time as an outpatient until the past week where that does was tapered to 30 mg daily. He has come to our care several days ago with continuing symptoms and lack of remission on his current medication regimen. A/P: Ulcerative colitis flair -Obtain CBC, CMP, H/H, stool C diff toxin, ESR and CRP, stool culture -Obtain Gastroenterology Consult, -- Consult appreciated --today, GI recommends initiation of Florastor 250 mg BID --Y-i-p-t-i-n-u-e- -4-0-m-g- -I-V- -u-h-p-z-w-k-s-b-u-z-z-l-f-k-y-o-n-e- -B-I-D- --- IV methylprednisolone switch to 20mg BID -Previously managed on Mesalamine delayed release tablets -Stool testing revealed C diff toxin gene positivity, start Vancomycin 125 mg Q6H PO - continue for 10 day full course and slow taper for 3-4 weeks as outpatient -Stool culture reveals stool negative for shigella, Campylobacter, and Salmonella - Initial tests preparing for initiation of remicade therapy - outside labs show negative quantiferon gold test for TB - Vitamin B12 and Folate levels tested and normal Anemia Hgb/Hct is: low at 11.7/34.5 on 04/21/17 and lower at 10.1/30.5 on 04/22/17 -Iron studies show low serum iron and low transferrin, with a high ferritin, indicating a picture of anemia of chronic disease Dehydration -IV fluids (0.9% NaCl) Diabetes melitis - Obtain HbA1c - 6.8 ----m-b-u-u-l-i-n- -w-h-i-l-e- -i-n- -a-p-q-p-i-t-a-l- Sitagliptin 50mg PO daily -Conversation reveals that he had never tried metformin for concern of diarrhea side effect, discussed that if his UC is under control that he could also try that medication -blood sugar checks and sliding scale insulin while in the hospital Hyperlipidemia -on atorvastatin 40 mg PO daily History of Prostate cancer -Surgery in the 1970s (TOTAL proctectomy per conversation with patient ) -Radiation therapy in the again for the prostate cancer -PSA was 1.9 on lab test from other hospital, patient says he follows with urology on a yearly / half-year basis for observance
[2017-04-23] MEDS ORDERED: GLUCOSE 10 TABS/TUBE PO PRN (15:30)
[2017-04-23] MEDS ORDERED: GLUCAGON FOR INJ 1 MG VIAL SQ PRN (15:30)
[2017-04-23] MEDS ORDERED: GLUCOSE 40% GEL 15 GM TUBE PO PRN (15:30)
[2017-04-23] MEDS ORDERED: DEXTROSE 50% 50 ML SYR IV PRN (15:30)
[2017-04-23 15:43] VITALS: BP 110/67; PULSE 86; TEMP 36.4; O2SAT 99
[2017-04-23 16:00] VITALS: O2SAT 97
--- NOTE | 2017-04-23 17:01 | Family Medicine Progress Note ---
Progress Note Date of Service Apr 23, 2017. Subjective Pt evaluation today including: conversation w/ patient, physical exam, chart review, lab review Pain: denies any abdominal pain PO Intake: tolerating low fiber diet Voiding: no voiding problems This AM pt denies any abdominal pain, n/v. Reports stools somewhat loose but more formed than previously and non-bloody Constitutional: No fever, No chills Respiratory: No shortness of breath Cardiovascular: No chest pain Abdomen: + diarrhea, No pain, No nausea, No vomiting Male : No dysuria Medications Current Inpatient Medications Medications (Trade) Dose Ordered Sig/Tawanda Route Start Time Stop Time Status Last Admin Dose Admin Cyanocobalamin (Vitamin B-12 Tab) 1,000 mcg DAILY PO 04/22/17 08:00 05/22/17 07:59 04/23/17 08:20 1,000 MCG Pantoprazole Sodium (Protonix Tab) 40 mg DAILY PO 04/22/17 08:00 05/22/17 07:59 04/23/17 08:20 40 MG Sitagliptin Phosphate (Januvia Tab) 50 mg DAILY PO 04/22/17 08:00 05/22/17 07:59 04/23/17 08:20 50 MG Vancomycin HCl (Vancomycin Oral Soln) 125 mg Q6H PO 04/21/17 18:30 05/01/17 18:29 04/23/17 11:22 125 MG Raspberry (Raspberry Syrup 5ml Cup) 5 ml Q6H PO 04/21/17 18:30 05/05/17 18:29 04/23/17 11:22 5 ML Atorvastatin Calcium (Lipitor Tab) 40 mg HS PO 04/22/17 21:00 05/22/17 20:59 04/22/17 19:52 40 MG Saccharomyces Boulardii (Florastor Cap) 250 mg BID PO 04/22/17 10:00 05/22/17 09:59 04/23/17 07:33 250 MG Methylprednisolone Sodium Succinate 20 mg/Syringe 0.32 ml @ 1.5 mls/min BID IV 04/23/17 20:00 05/23/17 19:59 Insulin Aspart (novoLOG ASPART) SLIDING SCALE If C... ACHS SC 04/23/17 16:30 05/23/17 16:29 Glucose (Glucose 40% Gel) 15-30 GRAMS 15 GRAMS... UD PRN PO 04/23/17 15:30 05/23/17 15:29 Glucose (Glucose Chew Tab) 4-8 Tablets 4 Tabl... UD PRN PO 04/23/17 15:30 05/23/17 15:29 Dextrose (Dextrose 50% 50ML Syringe) 25-50ML OF 50% DW IV FOR... UD PRN IV 04/23/17 15:30 05/23/17 15:29 Glucagon (Glucagon Inj) 1 mg UD PRN SQ 04/23/17 15:30 05/23/17 15:29 Objective Vital Signs Date Time Temp Pulse Resp B/P (MAP) Pulse Ox O2 Delivery O2 Flow Rate FiO2 04/23/17 15:43 36.4 86 20 110/67 (81) 99 Room Air 04/23/17 08:00 97 Room Air 04/23/17 07:33 36.5 80 17 122/73 (89) 97 Room Air 04/23/17 01:10 36.4 108 20 126/78 (94) 97 Room Air 79 130/80 (97) 96 126/79 (95) 04/23/17 00:25 Room Air Physical Exam General Appearance: no apparent distress Eyes: normal inspection, sclerae normal Respiratory/Chest: lungs clear, normal breath sounds Cardiovascular: regular rate, rhythm, no murmur Abdomen: normal bowel sounds, soft, + tenderness (LUQ and LLQ TTP) Extremities: non-tender, no pedal edema Neurologic/Psychiatric: alert Laboratory Results 04/23/17 07:23 Red Blood Count 3.06, Mean Corpuscular Volume 92.5, Mean Corpuscular Hemoglobin 30.7, Mean Corpuscular Hemoglobin Concent 33.2, Mean Platelet Volume 8.9, Neutrophils (%) (Auto) 83.4, Lymphocytes (%) (Auto) 6.7, Monocytes (%) (Auto) 8.1, Eosinophils (%) (Auto) 0.0, Basophils (%) (Auto) 0.2, Neutrophils # (Auto) 5.23, Lymphocytes # (Auto) 0.42, Monocytes # (Auto) 0.51, Eosinophils # (Auto) 0.00, Basophils # (Auto) 0.01 04/23/17 07:23 Test 04/23/17 07:23 White Blood Count 6.27 K/uL (4.8-10.8) Red Blood Count 3.06 M/uL (4.7-6.1) Hemoglobin 9.4 g/dL (14.0-18.0) Hematocrit 28.3 % (42-52) Mean Corpuscular Volume 92.5 fL (80-100) Mean Corpuscular Hemoglobin 30.7 pg (25-34) Mean Corpuscular Hemoglobin Concent 33.2 g/dl (32-36) Platelet Count 359 K/uL (130-400) Mean Platelet Volume 8.9 fL (7.4-10.4) Neutrophils (%) (Auto) 83.4 % Lymphocytes (%) (Auto) 6.7 % Monocytes (%) (Auto) 8.1 % Eosinophils (%) (Auto) 0.0 % Basophils (%) (Auto) 0.2 % Neutrophils # (Auto) 5.23 K/uL (1.4-6.5) Lymphocytes # (Auto) 0.42 K/uL (1.2-3.4) Monocytes # (Auto) 0.51 K/uL (0.11-0.59) Eosinophils # (Auto) 0.00 K/uL (0-0.5) Basophils # (Auto) 0.01 K/uL (0-0.2) RDW Standard Deviation 45.6 fL (36.4-46.3) RDW Coefficient of Variation 13.5 % (11.5-14.5) Immature Granulocyte % (Auto) 1.6 % Immature Granulocyte # (Auto) 0.10 K/uL (0.00-0.02) Toxic Granulation 2+ Anion Gap 7.0 mmol/L (3-11) Est Creatinine Clear Calc Drug Dose 109.5 ml/min Estimated GFR () 110.9 Estimated GFR (Non- 95.7 BUN/Creatinine Ratio 32.7 (10-20) Calcium Level 8.1 mg/dl (8.5-10.1) Total Bilirubin 0.4 mg/dl (0.2-1) Aspartate Amino Transf (AST/SGOT) 39 U/L (15-37) Alanine Aminotransferase (ALT/SGPT) 47 U/L (12-78) Alkaline Phosphatase 231 U/L (45-117) Total Protein 5.3 gm/dl (6.4-8.2) Albumin 1.2 gm/dl (3.4-5.0) Globulin 4.1 gm/dl (2.5-4.0) Albumin/Globulin Ratio 0.3 (0.9-2) Assessment and Plan 76yoM with PMHx of new onset-DM, HLD, GERD, and ulcerative colitis who presented with bloody diarrhea, and 60 pound weight loss within the last 2 months. Admitted for C.diff colitis and UC flare. Now with improving non-bloody diarrhea and alk phos. Diarrhea likely secondary to ulcerative colitis flare vs C. diff colitis - improving - Colonoscopy in March 2017 suggestive of severe ulcerative colitis from anus to hepatic flexure - Refractory to AZA and mesalamine - Stool culture no growth, negative shiga toxin and salmonella - C. difficile positive, previous infection in Feb 2017 with negative repeat C. Diff - B12 >2000; folate 14.56 nl - Iron study - Iron low 28, TIBC 102 low, Transferrin low 87, transferrin sat 23 %, and ferritin high 1946 (consistent with likely anemia of chronic disease) - GI consult - Plan to initiate Remicade if no coinfection with C. difficile, quantiferon TB = neg - IV solu medrol 20 mg BID - Vancomycin 125mg QID x 10 days followed by a slow taper over 3-4 weeks given previously treated with vanc - Florastor 250mg BID - Low fiber diet Dehydration 2/2 diarrhea: improving - Continue IV fluids with NSS @100 mls./hr - Monitor electrolytes New-onset diabetes mellitus Was recently diagnosed with diabetes and is currently on Januvia 50mg daily - hemoglobin A1c 6.8 - Acu checks and SS insulin goal 140-180 CF 30, carb correction 1:5 Weight loss - likely sec to UC - h/o prostatae cancer with complete removal/radiation. PSA at 1.9 - outpatient urology follow up Hyperlipidemia - Continue atorvastatin 40 mg GERD - Continue Protonix 40 mg daily - Consider taking off to prevent side effects, will evaluate need with GI DO NOT RESUSCITATE DVT prophylaxis: SCDS - will avoid chemical AC given bloody diarrhea Disposition: pending clinical improvement likely tomorrow Resident Involvement: Resident Care Provided Care Provided: Adult Hospital Medicine Reviewed: Pt Seen/Exam by Me History Resident Physician Supervision Note: I interviewed and examined the patient. Discussed with Dr. Lopez and agree with findings and plan as documented in the note. Any exceptions or clarifications are listed here: Patient feeling much better. No abdominal pain, had 5 loose bowel movements today, no further hematochezia. He is tolerating a low fiber diet. Vitals reviewed NAD, AAO 3 RRR, no murmurs Rubs Lungs Clear to Auscultation Bilaterally, No Wheezes Crackles or Rhonchi Abdomen Positive Bowel Sounds Soft Nontender Nondistended Extremities No Edema 76-year-old Male with a History of Ulcerative Colitis, Prostate Cancer, Diabetes Mellitus Type 2, hyperlipidemia, GERD, here with acute flare of ulcerative colitis with bloody diarrhea, 60 pound weight loss, severe protein calorie malnutrition, and coinfection with Clostridium difficile colitis. -Long slow taper of by mouth vancomycin upon discharge -We'll likely discharge on prednisone-appreciate GI recommendations for dosing -Follow up with GI as an outpatient to eventually start on Remicade -Okay to DC fluids as is tolerating low fiber diet very well -Given that PSA is elevated at 1.9, and a history of total prostatectomy, along with XRT to the pelvis, this is concerning. I do not have any other PSA values to compare to. He will follow-up with outpatient urologist routinely. -Given new diagnosis of diabetes mellitus type 2, on steroids now and with some elevated blood sugars, we'll add Accu-Cheks and sliding scale insulin -Consult nutrition for recommendations for supplementation given severe hypoalbuminemia and 60 pound weight loss in the last 2 months -Consider discontinuation permanently of his home PPI given the increased risk for C. difficile colitis Documented By: Kylah Cadena
[2017-04-23] MEDS: INSULIN ASPART 100 UNITS/ML 3 ML PEN SC SCH ×2 (18:22→20:14)
[2017-04-23] MEDS: ATORVASTATIN 40 MG TAB PO SCH (20:12)
[2017-04-23] MEDS: METHYLPREDNISOLONE IV 20 MG in SYRINGE 0 ML IV SCH (20:12)
[2017-04-23 23:43] VITALS: BP_SYST 124; BP_SYST 136; BP_SYST 143; BP_DIAS 77; BP_DIAS 80; BP_DIAS 81; PULSE 77; PULSE 86; PULSE 92; TEMP 36.6; O2SAT 98
[2017-04-24] MEDS: RASPBERRY SYRUP 5 ML UDP PO SCH ×3 (00:22→12:41)
[2017-04-24] MEDS: VANCOMYCIN HCL 125 MG/2.5ML SOLN PO SCH ×3 (00:22→12:40)
--- NOTE | 2017-04-24 02:31 | Progress Note ---
Progress Note Date of Service Apr 24, 2017. Progress Note return of significant bloody stool/ diarrhea this morning, has not had any since admission; denies pain CBC pending for am, hemodynamically stable CXR from admission looks like mild dilation of the colon; will order KUB (r/o volvulus/severe obstruction) and CXR upright ( assess for perf) additionally added a follow up ESR and phosphorous and Mg considering persistent diarrhea
[2017-04-24 03:29] LABS: HEMATOCRIT 28.7 % (42-52); HEMOGLOBIN 9.5 g/dL (14.0-18.0); MEAN CELL VOLUME 92.9 fL (80-100); MEAN CORPUSCULAR HEMOGLOBIN 30.7 pg (25-34); MEAN CORPUSCULAR HGB CONC 33.1 g/dl (32-36); MEAN PLATELET VOLUME 8.7 fL (7.4-10.4); PLATELET COUNT 346 K/uL (130-400); RED CELL DISTRIBUTION WIDTH CV 13.6 % (11.5-14.5); RED CELL DISTRIBUTION WIDTH SD 45.9 fL (36.4-46.3); WHITE BLOOD COUNT 6.26 K/uL (4.8-10.8)
[2017-04-24 03:51] LABS: ALBUMIN 1.4 gm/dl (3.4-5.0); CALCIUM 8.1 mg/dl (8.5-10.1); CREATININE 0.78 mg/dl (0.60-1.40); POTASSIUM 3.9 mmol/L (3.5-5.1)
[2017-04-24 03:58] LABS: BASO % 0.2 %; BASO ABS # 0.01 K/uL (0-0.2); IG# 0.06 K/uL (0.00-0.02); LYMPH % 5.1 %; LYMPH ABS # 0.32 K/uL (1.2-3.4); MONO % 10.4 %; MONO ABS # 0.65 K/uL (0.11-0.59); NEUT % 83.3 %; NEUT ABS # 5.22 K/uL (1.4-6.5)
[2017-04-24 03:59] LABS: PHOSPHORUS 2.6 mg/dl (2.5-4.9); TOTAL PROTEIN 5.6 gm/dl (6.4-8.2)
--- NOTE | 2017-04-24 06:34 | DIAGNOSTIC IMAGING REPORT ---
CHEST ONE VIEW PORTABLE HISTORY: 76 years-old Male assess for perf, worsening bloody diarrhea acute bloody diarrhea. COMPARISON: Chest radiographs 04/21/2017 TECHNIQUE: Portable AP view of the chest FINDINGS: Cardiac mediastinal and hilar silhouettes are within normal limits. No pneumothorax, pleural effusion, focal airspace consolidation or overt pulmonary edema. The bones of the chest appear grossly intact. Degenerative changes are noted within the shoulders and spine. Imaged upper abdomen appears unremarkable. IMPRESSION: No acute process. The above report was generated using voice recognition software. It may contain grammatical, syntax or spelling errors. Electronically signed by: Yomi Morley M.D. 04/24/2017 6:33 AM Dictated Date/Time: 04/24/2017 6:32 AM
--- NOTE | 2017-04-24 06:36 | DIAGNOSTIC IMAGING REPORT ---
KUB CLINICAL HISTORY: Worsening bloody diarrhea COMPARISON STUDY: No previous studies for comparison. FINDINGS: 2 portable supine views are provided for interpretation. The study is limited from a technical standpoint. There is a prominent gas-filled upper abdominal bowel loop likely representing the stomach. There are multiple surgical clips in the pelvis suggesting a prior lymph node dissection possibly related to a prostatectomy. IMPRESSION: 1. Technically limited study 2. Prominent gas-filled upper abdominal bowel loop, likely representing a mildly distended stomach. 3. No conventional radiographic evidence of a high-grade bowel obstruction. Electronically signed by: Pelon Prince M.D. 04/24/2017 6:35 AM Dictated Date/Time: 04/24/2017 6:33 AM
[2017-04-24 07:28] VITALS: BP 119/70; PULSE 78; TEMP 36.5; O2SAT 98
[2017-04-24] MEDS: SACCHAROMYCES BOUL (FLORASTOR) 250 MG CAP PO SCH (08:11)
[2017-04-24] MEDS: METHYLPREDNISOLONE IV 20 MG in SYRINGE 0 ML IV SCH (08:11)
[2017-04-24] MEDS: CYANOCOBALAMIN 500 MCG TAB (VIT B-12) PO SCH (08:11)
[2017-04-24] MEDS: PANTOprazole SOD 40 MG TAB PO SCH (08:11)
[2017-04-24] MEDS: SITAGLIPTIN 25 MG TAB PO SCH (08:11)
[2017-04-24] MEDS: INSULIN ASPART 100 UNITS/ML 3 ML PEN SC SCH ×2 (08:19→12:44)
--- NOTE | 2017-04-24 09:52 | Gastroenterology Progress Note ---
Progress Note Date of Service: Apr 24, 2017 Subjective Pt evaluation today including: conversation w/ patient, physical exam, chart review, lab review, review of studies, review of inpatient medication list Patient with some passage of bright red blood last evening with increased stool frequency. Lactate level normal and abdominal x ray without any evidence of obstruction or megacolon. States he has had 5 bms this morning without any blood. Stool remains loose and watery. No nausea or vomiting, abdominal pain, fever or chills, or fatigue. Review of Systems Constitutional: + see HPI Eyes: No eye pain, No redness Respiratory: No problem reported Cardiac: No problem reported Abdomen: + see HPI Musculoskeletal: No joint pain Medications Current Inpatient Medications Medications (Trade) Dose Ordered Sig/Tawanda Route Start Time Stop Time Status Last Admin Dose Admin Cyanocobalamin (Vitamin B-12 Tab) 1,000 mcg DAILY PO 04/22/17 08:00 05/22/17 07:59 04/24/17 08:11 1,000 MCG Pantoprazole Sodium (Protonix Tab) 40 mg DAILY PO 04/22/17 08:00 05/22/17 07:59 04/24/17 08:11 40 MG Sitagliptin Phosphate (Januvia Tab) 50 mg DAILY PO 04/22/17 08:00 05/22/17 07:59 04/24/17 08:11 50 MG Vancomycin HCl (Vancomycin Oral Soln) 125 mg Q6H PO 04/21/17 18:30 05/01/17 18:29 04/24/17 06:15 125 MG Raspberry (Raspberry Syrup 5ml Cup) 5 ml Q6H PO 04/21/17 18:30 05/05/17 18:29 04/24/17 06:15 5 ML Atorvastatin Calcium (Lipitor Tab) 40 mg HS PO 04/22/17 21:00 05/22/17 20:59 04/23/17 20:12 40 MG Saccharomyces Boulardii (Florastor Cap) 250 mg BID PO 04/22/17 10:00 05/22/17 09:59 04/24/17 08:11 250 MG Methylprednisolone Sodium Succinate 20 mg/Syringe 0.32 ml @ 1.5 mls/min BID IV 04/23/17 20:00 05/23/17 19:59 04/24/17 08:11 1.5 MLS/MIN Insulin Aspart (novoLOG ASPART) SLIDING SCALE If C... ACHS SC 04/23/17 16:30 05/23/17 16:29 04/24/17 08:19 2 UNITS Glucose (Glucose 40% Gel) 15-30 GRAMS 15 GRAMS... UD PRN PO 04/23/17 15:30 05/23/17 15:29 Glucose (Glucose Chew Tab) 4-8 Tablets 4 Tabl... UD PRN PO 04/23/17 15:30 05/23/17 15:29 Dextrose (Dextrose 50% 50ML Syringe) 25-50ML OF 50% DW IV FOR... UD PRN IV 04/23/17 15:30 05/23/17 15:29 Glucagon (Glucagon Inj) 1 mg UD PRN SQ 04/23/17 15:30 05/23/17 15:29 Mesalamine (Delzicol Delayed Rel Cap) 1,600 mg TID PO 04/24/17 14:00 05/24/17 13:59 Objective Vital Signs Date Time Temp Pulse Resp B/P (MAP) Pulse Ox O2 Delivery O2 Flow Rate FiO2 04/24/17 08:30 Room Air 04/24/17 07:28 36.5 78 18 119/70 (86) 98 Room Air 04/24/17 00:10 Room Air 04/23/17 23:43 36.6 77 20 124/77 (93) 98 Room Air 86 136/80 (98) 92 143/81 (101) 04/23/17 16:00 97 Room Air 04/23/17 15:43 36.4 86 20 110/67 (81) 99 Room Air Physical Exam General Appearance: no apparent distress Eyes: EOMI ENT: hearing grossly normal Neck: supple Respiratory/Chest: lungs clear Cardiovascular: regular rate, rhythm Abdomen: non tender, soft, + abnormal bowel sounds (hyperactive) Neurologic/Psych: alert, normal mood/affect, oriented x 3 Skin: warm/dry Laboratory Results Last 24 Hours Test 04/23/17 16:50 04/23/17 19:59 04/24/17 03:15 04/24/17 07:38 Bedside Glucose 148 mg/dl 181 mg/dl 123 mg/dl White Blood Count 6.26 K/uL Red Blood Count 3.09 M/uL Hemoglobin 9.5 g/dL Hematocrit 28.7 % Mean Corpuscular Volume 92.9 fL Mean Corpuscular Hemoglobin 30.7 pg Mean Corpuscular Hemoglobin Concent 33.1 g/dl Platelet Count 346 K/uL Mean Platelet Volume 8.7 fL Neutrophils (%) (Auto) 83.3 % Lymphocytes (%) (Auto) 5.1 % Monocytes (%) (Auto) 10.4 % Eosinophils (%) (Auto) 0.0 % Basophils (%) (Auto) 0.2 % Neutrophils # (Auto) 5.22 K/uL Lymphocytes # (Auto) 0.32 K/uL Monocytes # (Auto) 0.65 K/uL Eosinophils # (Auto) 0.00 K/uL Basophils # (Auto) 0.01 K/uL RDW Standard Deviation 45.9 fL RDW Coefficient of Variation 13.6 % Immature Granulocyte % (Auto) 1.0 % Immature Granulocyte # (Auto) 0.06 K/uL Toxic Granulation 1+ Echinocytes 1+ Erythrocyte Sedimentation Rate 61 mm/hr Sodium Level 136 mmol/L Potassium Level 3.9 mmol/L Chloride Level 105 mmol/L Carbon Dioxide Level 24 mmol/L Anion Gap 7.0 mmol/L Blood Urea Nitrogen 16 mg/dl Creatinine 0.78 mg/dl Est Creatinine Clear Calc Drug Dose 88.5 ml/min Estimated GFR () 101.6 Estimated GFR (Non- 87.7 BUN/Creatinine Ratio 20.6 Random Glucose 156 mg/dl Lactic Acid Level 2.0 mmol/L Calcium Level 8.1 mg/dl Phosphorus Level 2.6 mg/dl Magnesium Level 2.0 mg/dl Total Bilirubin 0.3 mg/dl Aspartate Amino Transf (AST/SGOT) 45 U/L Alanine Aminotransferase (ALT/SGPT) 58 U/L Alkaline Phosphatase 233 U/L Total Protein 5.6 gm/dl Albumin 1.4 gm/dl Globulin 4.2 gm/dl Albumin/Globulin Ratio 0.3 Prealbumin 8.9 mg/dl Assessment and Plan Patient is a 76 year old male with a long-standing history of Ulcerative Colitis with severely active disease noted on recent colonoscopy by [facility] in the setting of recent diagnosis of C Diff in February of this year with persistent symptoms refractory of oral corticosteroid use and positive C Difficile toxin B. 1. Continue Vancomycin 125 mg QID. Would recommend a long taper upon discharge as he was previously treated with Vancomycin. 2. Continue Solu-Medrol to 20 mg IV BID. 3. Low fiber diet. Will also limit lactose due to increased frequency overnight. 4. Continue Florastor 250 mg BID. 5. Will add Delzicol 1600 mg TID as he was taking Asacol HD 1600 mg TID as an outpatient to help reduce inflammation. Agree with GABINO Cooper as above Will need a 6 week Vanco taper for treatment of C-diff Prednisone taper starting at 40mg by mouth daily decreasing by 5 mg each week for 8 weeks total Continue Delzicol 1600mg by mouth TID Followup in our office as scheduled
[2017-04-24 13:02] LABS: HEMATOCRIT 31.3 % (42-52); HEMOGLOBIN 10.1 g/dL (14.0-18.0); MEAN CELL VOLUME 92.6 fL (80-100); MEAN CORPUSCULAR HEMOGLOBIN 29.9 pg (25-34); MEAN CORPUSCULAR HGB CONC 32.3 g/dl (32-36); MEAN PLATELET VOLUME 8.9 fL (7.4-10.4); PLATELET COUNT 415 K/uL (130-400); RED CELL DISTRIBUTION WIDTH CV 13.6 % (11.5-14.5); RED CELL DISTRIBUTION WIDTH SD 45.9 fL (36.4-46.3); WHITE BLOOD COUNT 8.49 K/uL (4.8-10.8)
[2017-04-24 13:09] VITALS: Ht 182.9 cm; Wt 92.5 kg
[2017-04-24] MEDS ORDERED: MESALAMINE 400 MG CAPDR PO SCH (14:00)
[2017-04-24] MEDS ORDERED: PRED10TA PO (14:39)
[2017-04-24] MEDS ORDERED: ASC400 PO (14:39)
[2017-04-24] MEDS ORDERED: SACC250C3 PO (14:39)
[2017-04-24] MEDS ORDERED: VANC1SUS PO (14:39)
--- NOTE | 2017-04-24 14:49 | Discharge Instructions ---
Discharge Instructions Date of Service Apr 24, 2017. Admission Reason for Admission: Ulcerative Colitis Flare Up Discharge Discharge Diagnosis / Problem: ulcerative colitis flare and C. diff colitis Discharge Goals Goal(s): Decrease discomfort, Diagnostic testing, Therapeutic intervention Activity Recommendations Activity Limitations: resume your previous activity . Instructions / Follow-Up Instructions / Follow-Up Mr. Manuelito navarro were admitted for bloody diarrhea and weight loss. You were treated for an episode of ulcerative colitis flare and also found to be positive for a bacteria called clostridium difficile (C. diff) which can also cause inflammation in your large intestines. We treated you for both with antibiotics and steroids. Your condition was improving prior to discharge. Please follow these instructions for further care: -Please take Vancomycin (antibiotic) taper course (prescription provided to be filled): - 125mg four times a day for the next 11 days then - 125mg three times a day for the following 1 week then - 125mg two times a day for the following 1 week then - 125mg once a day for the following 1 week -Please take Prednisone 40mg once a day until you see your treasurer Cassie Oh (prescription sent to [facility]) -Please follow up with gastroenterology on 05/05/17 at 1pm, Cassie Oh - Please discuss stopping Protonix with your treasurer if possible when you see them as it can increase your risk for C. diff infections, cause B12 deficiency, and increase your risk for fractures -Please take a probiotic such as Florastor 250mg twice a day (prescription sent to [facility]) -Please continue taking Mesalamine 1600mg three times a day -You can stop taking azathioprine -Please follow up with your primary care doctor Dr. Mccormack on 04/29/17 at 1pm - Please discuss your diabetes medications and management with your doctor Current Hospital Diet Patient's current hospital diet: Low Fiber Diet, Diabetes Type 2 Diet, Low Lactose Diet Discharge Diet Recommended Diet: AHA Diet (Heart Healthy), Diabetes Type 2 Diet Pending Studies Studies pending at discharge: no Laboratory Results Hemoglobin A1c Test 04/21/17 16:00 Range/Units Estimated Average Glucose 148 mg/dl Hemoglobin A1c 6.8 H 4.5-5.6 % Medical Emergencies . Who to Call and When: Medical Emergencies: If at any time you feel your situation is an emergency, please call 911 immediately. . Non-Emergent Contact Non-Emergency issues call your: Primary Care Provider . . "Provider Documentation" section prepared by Evan Lopez. . VTE Core Measure Inpt VTE Proph given/why not?: SCD's
[2017-04-24] MEDS ORDERED: VANC5CAP PO (15:03)
[2017-04-24 15:24] VITALS: BP 119/70; PULSE 78; TEMP 36.5; O2SAT 98
[2017-04-24 15:44] VITALS: BP 120/74; PULSE 88; TEMP 36.7; O2SAT 98
--- NOTE | 2017-04-25 00:41 | Discharge Summary ---
Discharge Summary Date of Service Apr 25, 2017. Discharge Summary Admission Date: Apr 21, 2017 at 14:19 Discharge Date: Apr 24, 2017 Discharge Disposition: Home Principal Diagnosis: UC flare and C. Diff colitis Problems/Secondary Diagnoses: dehydration new onset DM 2 weight loss HLD GERD History of prostate cancer-elevated PSA this admission 1.9 Elevated alkaline phosphatase Anemia of chronic disease and iron deficiency Hematochezia severe protein calorie malnutrition Procedures: none Consultations: GI Medication Reconciliation New Medications: Prednisone (Prednisone) 10 Mg Tab 40 MG PO DAILY for 14 Days, #56 TAB Vancomycin Hcl (Vancomycin) 125 Mg Cap 125 MG PO BLANK, #86 CAP Please take: 125mg four times a day x 11 days 125mg three times a day x 1 week 125mg twice a day x 1 week 125mg once a day x 1 week Saccharomyces Boulardii (Florastor) 250 Mg Cap 250 MG PO BID for 30 Days, #60 CAP Continued Medications: Ascorbic Acid (Vitamin C) 1,000 Mg Tab DAILY Atorvastatin (Lipitor) 40 Mg Tab 1 TAB PO DAILY for 30 Days, #30 TAB 5 Refills Cholecalciferol (Vitamin D-3) 2,000 Unit Tab DAILY Cyanocobalamin (Vitamin B-12) 1,000 Mcg Tab 1000 MCG PO DAILY, TAB Ferrous Sulfate (Iron) 325 Mg Tab DAILY Glucosamine Sulfate (Glucosamine) 1,000 Mg Tab 1000 MG PO DAILY, TAB Mesalamine (Asacol Hd) 800 Mg Tab 2 TID Pantoprazole (Protonix) 40 Mg Tab 40 MG PO DAILY, #30 TAB Sitagliptin (Januvia) 50 Mg Tab 50 MG PO DAILY, TAB Discontinued Medications: Azathioprine (Imuran) 50 Mg Tab 50 MG PO DAILY, TAB Discharge Exam Review of Systems: Constitutional: No fever, No chills Respiratory: No shortness of breath Cardiovascular: No chest pain Abdomen: + diarrhea, No pain, No nausea, No vomiting Genitourinary - Female: No dysuria Genitourinary - Male: No dysuria Physical Exam: General Appearance: no apparent distress Respiratory/Chest: lungs clear, normal breath sounds Cardiovascular: regular rate, rhythm, no murmur Abdomen / GI: normal bowel sounds, soft, + tenderness (LUQ and LLQ) Extremities: no calf tenderness, no pedal edema Neurologic/Psychiatric: alert, oriented x 3 Skin: warm/dry Hospital Course 76yoM with PMHx of new onset-DM, HLD, GERD, and ulcerative colitis who presented with bloody diarrhea, and 60 pound weight loss within the last 2 months. Admitted for C.diff colitis and UC flare. Now with improving non-bloody diarrhea and alk phos. Diarrhea likely secondary to ulcerative colitis flare vs C. diff colitis - improving - Colonoscopy in March 2017 suggestive of severe ulcerative colitis from anus to hepatic flexure - Refractory to AZA and mesalamine - Stool culture no growth, negative shiga toxin and salmonella - C. difficile positive, previous infection in Feb 2017 with negative repeat C. Diff - B12 >1999; folate 14.56 nl - Iron study - Iron low 28, TIBC 102 low, Transferrin low 87, transferrin sat 23 %, and ferritin high 1946 (consistent with likely anemia of chronic disease) - GI consult - Plan to initiate Remicade if no coinfection with C. difficile, quantiferon TB = neg - IV solu medrol 20 mg BID - > Discharged with prednisone 40mg PO x 14 days - Vancomycin 125mg QID x 10 days followed by a slow taper over 3-4 weeks given previously treated with vanc DCED with: Vancomycin Hcl (Vancomycin) 125 Mg Cap 125mg four times a day x 11 days 125mg three times a day x 1 week 125mg twice a day x 1 week 125mg once a day x 1 week - Florastor 250mg BID - Low fiber and lactose diet Dehydration 2/2 diarrhea: improving - Received IV fluids with NSS @100 mls./hr New-onset diabetes mellitus Was recently diagnosed with diabetes - Continued Januvia 50mg daily - hemoglobin A1c 6.8 - Acu checks and SS insulin goal 140-180 CF 30, carb correction 1:5 - Recommended PCP f/u and management on DC Weight loss - likely sec to UC - h/o prostatae cancer with complete removal/radiation. PSA at 1.9 - outpatient urology follow up Hyperlipidemia - Continue atorvastatin 40 mg GERD - Continue Protonix 40 mg daily - Recommended evaluation of need with GI on DC DO NOT RESUSCITATE DVT prophylaxis: SCDS avoided chemical AC given bloody diarrhea Total Time Spent: Greater than 30 minutes This includes examination of the patient, discharge planning, medication reconciliation, and communication with other providers. Discharge Instructions Please refer to the electronic Patient Visit Report (Discharge Instructions) for additional information. Follow-Up PCP within 2 weeks GI within 1-2 weeks Additional Copies To Kaveh Mccormack D.O. Reviewed: Pt Seen/Exam by Me History Resident Physician Supervision Note: I interviewed and examined the patient. Discussed with Dr. Lopez and agree with findings and plan as documented in the note. Any exceptions or clarifications are listed here: Patient feeling much better. No abdominal pain, did have some blood in his stool this morning, he reports this happens to him occasionally, his hemoglobin actually went up on a repeat check today. He otherwise had 5 loose bowel movements today, no further hematochezia. He is tolerating a low fiber diet. He is ready for discharge. Vitals reviewed NAD, AAO 3 RRR, no murmurs Rubs Lungs Clear to Auscultation Bilaterally, No Wheezes Crackles or Rhonchi Abdomen Positive Bowel Sounds Soft Nontender Nondistended Extremities No Edema 76-year-old Male with a History of Ulcerative Colitis, Prostate Cancer, Diabetes Mellitus Type 2, hyperlipidemia, GERD, here with acute flare of ulcerative colitis with bloody diarrhea, 60 pound weight loss, severe protein calorie malnutrition, and coinfection with Clostridium difficile colitis. -Long slow taper of by mouth vancomycin upon discharge -We will discharge on prednisone-appreciate GI recommendations for dosing of 40 mg daily and long slow taper to be determined at GI follow-up -Follow up with GI as an outpatient to eventually start on Remicade -Given that PSA is elevated at 1.9, and a history of total prostatectomy, along with XRT to the pelvis, this is concerning. I do not have any other PSA values to compare to. He will follow-up with outpatient urologist routinely. -Given new diagnosis of diabetes mellitus type 2, on steroids now and with some elevated blood sugars, continue Januvia and consider increasing to 100 mg daily as an outpatient, has upcoming PCP follow-up -Consulted nutrition for recommendations for supplementation given severe hypoalbuminemia and 60 pound weight loss in the last 2 months -Consider discontinuation permanently of his home PPI given the increased risk for C. difficile colitis-discussed with patient and he will discuss with GI at follow-up Stable for discharge to home Documented By: Kylah Cadena
== END 2017-04-24 16:37 | disposition home or self-care (01) | DRG 385 ==
LOC: C.4E 14:19
PROVIDERS: ADMIT Internal Medicine; ATTEND Family Medicine
DX: K51.80 Other ulcerative colitis without complications (principal); A04.71 Enterocolitis due to Clostridium difficile, recurrent; E43 Unspecified severe protein-calorie malnutrition; E11.40 Type 2 diabetes mellitus with diabetic neuropathy, unspecified; K21.9 Gastro-esophageal reflux disease without esophagitis; M48.00 Spinal stenosis, site unspecified; Z85.46 Personal history of malignant neoplasm of prostate; E86.0 Dehydration; E78.5 Hyperlipidemia, unspecified; Z66 Do not resuscitate; D64.9 Anemia, unspecified; K44.9 Diaphragmatic hernia without obstruction or gangrene